=== PATIENT | female | born 1940 | race Caucasian/White ===

== ENCOUNTER 2017-07-12 07:57 | Day surgery (SDC) | payer OTHER ==
[2017-07-12] MEDS ORDERED: D5 LR 1000 ML 1,000 ML IV ONE (08:02)
[2017-07-12] MEDS ORDERED: DUONEB 0.5 MG/3 MG NEB ONE (08:49)
[2017-07-12] MEDS ORDERED: DUONEB 0.5 MG/3 MG ONE (08:51)
[2017-07-12] MEDS ORDERED: DIPRIVAN VIAL 20 ML ONE (09:39)
[2017-07-12 10:17] VITALS: BP 130/73
== END 2017-07-12 10:20 | disposition home or self-care (01) ==
LOC: SURG1 07:57
PROVIDERS: ATTEND Internal Medicine Gastroenterology
PROC: 0DB68ZX Excision of Stomach, Via Natural or Artificial Opening Endoscopic, Diagnostic (ICD-10-PCS; principal; 2017-07-12 11:15)
PROC: 0DB88ZX Excision of Small Intestine, Via Natural or Artificial Opening Endoscopic, Diagnostic (ICD-10-PCS; principal; 2017-07-12 11:15)
PROC: 0DJ08ZZ Inspection of Upper Intestinal Tract, Via Natural or Artificial Opening Endoscopic (ICD-10-PCS; principal; 2017-07-12 11:15)
DX: R13.19 Other dysphagia (principal); R10.13 Epigastric pain; K21.9 Gastro-esophageal reflux disease without esophagitis; K22.4 Dyskinesia of esophagus; R11.0 Nausea; K22.2 Esophageal obstruction; K44.9 Diaphragmatic hernia without obstruction or gangrene; K29.60 Other gastritis without bleeding
CPT/HCPCS: 94640; 99100; A4217; J3490; J7120; J7620

== ENCOUNTER 2017-07-19 08:12 | Day surgery (SDC) | payer OTHER ==
[2017-07-19] MEDS ORDERED: D5 LR 1000 ML 1,000 ML IV ONE (08:38)
[2017-07-19] MEDS ORDERED: DIPRIVAN VIAL 20 ML ONE (09:32)
[2017-07-19] MEDS ORDERED: DIPRIVAN VIAL 10 ML ONE (09:56)
[2017-07-19 11:13] VITALS: BP 132/88
== END 2017-07-19 10:25 | disposition home or self-care (01) ==
LOC: SURG1 08:12
PROVIDERS: ATTEND Internal Medicine Gastroenterology
PROC: 0DBN8ZX Excision of Sigmoid Colon, Via Natural or Artificial Opening Endoscopic, Diagnostic (ICD-10-PCS; principal; 2017-07-19 11:15)
PROC: 0DBM8ZX Excision of Descending Colon, Via Natural or Artificial Opening Endoscopic, Diagnostic (ICD-10-PCS; principal; 2017-07-19 11:15)
PROC: 0DBK8ZX Excision of Ascending Colon, Via Natural or Artificial Opening Endoscopic, Diagnostic (ICD-10-PCS; principal; 2017-07-19 11:15)
PROC: 0DJD8ZZ Inspection of Lower Intestinal Tract, Via Natural or Artificial Opening Endoscopic (ICD-10-PCS; principal; 2017-07-19 11:15)
PROC: 0DBP8ZX Excision of Rectum, Via Natural or Artificial Opening Endoscopic, Diagnostic (ICD-10-PCS; principal; 2017-07-19 11:15)
DX: K92.1 Melena (principal); K92.2 Gastrointestinal hemorrhage, unspecified; Z86.010 Personal history of colon polyps; K63.5 Polyp of colon; K57.30 Diverticulosis of large intestine without perforation or abscess without bleeding; K64.0 First degree hemorrhoids; D12.2 Benign neoplasm of ascending colon; D12.4 Benign neoplasm of descending colon
CPT/HCPCS: 99100; A4217; J3490; J7120

== ENCOUNTER → 2017-07-25 | Outpatient (CLI) | payer OTHER ==
[2017-07-19 11:13] VITALS: BP 132/88
[2017-07-25 09:56] LABS: BASOPHILS # (AUTO) 0.1 X10^3/uL (0.0-0.1); BASOPHILS % (AUTO) 0.7 % (0.2-1.0); HEMATOCRIT 38.6 % (36.0-47.0); HEMOGLOBIN 12.5 g/dL (12.0-16.0); LYMPHOCYTES # (AUTO) 0.8 X10^3/uL (1.3-2.9); LYMPHOCYTES % (AUTO) 10.4 % (21.0-51.0); MEAN CORPUSCULAR HEMOGLOBIN 27.7 pg (27.0-34.0); MEAN CORPUSCULAR HGB CONC 32.5 g/dL (33.0-35.0); MEAN PLATELET VOLUME 7.7 fL (7.4-11.0); MONOCYTES # (AUTO) 0.4 x10^3/uL (0.3-0.8); MONOCYTES % (AUTO) 4.9 % (0.0-13.0); NEUTROPHILS # (AUTO) 6.3 x10^3/uL (2.2-4.8); PLATELET COUNT 278 X10^3/uL (150.0-450.0); RED BLOOD COUNT 4.53 X10^6/uL (3.5-5.4); RED CELL DISTRIBUTION WIDTH 16.4 % (11.6-16.5); WHITE BLOOD COUNT 7.5 X10^3/uL (3.6-10.0)
[2017-07-25 10:01] LABS: ALANINE AMINOTRANSFERASE 18 Units/L (12-78); ALBUMIN 3.4 g/dL (3.4-5.0); ALKALINE PHOSPHATASE 113 Units/L (46-116); ASPARTATE AMINO TRANSFERASE 21 Units/L (15-37); BLOOD UREA NITROGEN 11 mg/dL (7-18); CALCIUM 9.2 mg/dL (8.5-10.1); CARBON DIOXIDE 29.7 mmol/L (21-32); CHLORIDE 102 mmol/L (98-107); CHOL/HDL RATIO 1.8 (0.0-5.0); CHOLESTEROL 176 mg/dL (0-200); CREATININE 1.24 mg/dL (0.55-1.02); FREE T4 (FREE THYROXINE) 0.97 ng/dL (0.76-1.46); HDL CHOLESTEROL 96 mg/dL (40-60); SODIUM 137 mmol/L (136-145); TOTAL PROTEIN 7.8 g/dL (6.4-8.2); TRIGLYCERIDES 50 mg/dL (0-150); TSH (3RD GENERATION) 1.146 uIU/mL (0.358-3.74); eGFR BLACK RACES 54 (>60); eGFR NON BLACK RACES 45 (>60)
== END ==
LOC: LAB 09:14
PROVIDERS: ATTEND Nurse Practitioner Family
DX: I10 Essential (primary) hypertension (principal); E78.4 Other hyperlipidemia; E03.8 Other specified hypothyroidism; E56.8 Deficiency of other vitamins
CPT/HCPCS: 36415; 80053; 80061; 82306; 84439; 84443; 84481; 85025

== ENCOUNTER → 2017-08-01 | Outpatient (CLI) | payer OTHER ==
[2017-07-19 11:13] VITALS: BP 132/88
--- NOTE | 2017-08-01 15:23 | RAD ---
Left knee, AP and lateral Indication: Knee pain Comparison: None Findings: There is mild tricompartmental degenerative arthrosis, worst in the medial compartment. The bones are subjectively osteopenic. No acute cortical disruption or malalignment identified. No large joint effusion. Impression: Mild tricompartmental DJD. Reported By:
--- NOTE | 2017-08-01 16:18 | RAD ---
History: Arthritis Study: Right knee Complete Findings: Multiple views of the right knee are compared to a previous study of 04/07/2016. There is s evere narrowing of the medial joint compartment with moderate spurring. There is minimal spurring fro m the superior and inferior poles of the patella. No fracture, bony destructive process or joint effu ventura is identified. There is osteopenia of the bony structures. 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 Reported By:
== END | disposition home or self-care (01) | DRG 554 ==
LOC: RAD 14:21
PROVIDERS: ATTEND Nurse Practitioner Family
DX: M17.0 Bilateral primary osteoarthritis of knee (principal)
CPT/HCPCS: 73564

== ENCOUNTER → 2017-08-08 | Outpatient (CLI) | payer OTHER ==
[2017-07-19 11:13] VITALS: BP 132/88
[2017-08-08 10:08] LABS: BASOPHILS # (AUTO) 0.1 X10^3/uL (0.0-0.1); BASOPHILS % (AUTO) 0.7 % (0.2-1.0); EOSINOPHILS # (AUTO) 0.1 x10^3/uL (0.0-0.2); EOSINOPHILS % (AUTO) 1.5 % (0.9-2.9); HEMATOCRIT 37.3 % (36.0-47.0); HEMOGLOBIN 12.1 g/dL (12.0-16.0); LYMPHOCYTES # (AUTO) 1.5 X10^3/uL (1.3-2.9); LYMPHOCYTES % (AUTO) 18.1 % (21.0-51.0); MEAN CORPUSCULAR HEMOGLOBIN 27.6 pg (27.0-34.0); MEAN CORPUSCULAR HGB CONC 32.4 g/dL (33.0-35.0); MEAN PLATELET VOLUME 7.3 fL (7.4-11.0); MONOCYTES # (AUTO) 0.7 x10^3/uL (0.3-0.8); MONOCYTES % (AUTO) 8.1 % (0.0-13.0); NEUTROPHILS % (AUTO) 71.6 % (42.0-75.0); PLATELET COUNT 248 X10^3/uL (150.0-450.0); RED BLOOD COUNT 4.39 X10^6/uL (3.5-5.4); RED CELL DISTRIBUTION WIDTH 16.5 % (11.6-16.5); WHITE BLOOD COUNT 8.4 X10^3/uL (3.6-10.0)
--- NOTE | 2017-08-08 10:12 | RAD ---
Examination: Lumbar spine History: Low back pain no trauma Findings: There is a severe rotoscoliosis of the lumbar spine, apex of curvature at L2. The the spina l deformity limits accurate lateral evaluation of alignment and intervertebral disc detail. There is suggestion of multilevel disc narrowing and osteophyte formation. There is no definite fracture. Oste openia is consistent with age. Impression: Severe lumbar scoliosis with rotatory component. Multilevel degenerative disc disease and spondylosis. No acute features demonstrated. Reported By:
--- NOTE | 2017-08-08 10:17 | RAD ---
Examination: Right hip, two views History: Pain, no trauma Comparison reference: 08/31/2016 Findings: Osteopenia consistent with age. There is no evidence for hip fracture, displacement, osteol ytic disease or periarticular calcification. The joint space is minimally narrowed. The femoral head is in normal position with the acetabulum. Impression: No acute or significant abnormality demonstrated. Reported By:
--- NOTE | 2017-08-08 10:21 | RAD ---
Examination: Right ribs History: Pain, no history of trauma Findings:The PA chest demonstrates normal heart size. The lungs are probably clear although partly ob scured by a very large intrathoracic hiatal hernia. There is no evidence for pleural fluid or pneumop eritoneum. Additional dedicated views of the right ribs demonstrate contour irregularity involving th e anterior rib ends at the 4th and 5th ribs. There is no evidence for osteoblastic disease or bone de struction. Evaluation of rib detail is limited by overlying structures. Impression: 1. Suspect acute or subacute right anterior rib fractures, see above. 2. Large intrathoracic hiatal hernia. Reported By:
[2017-08-08 10:23] LABS: ALANINE AMINOTRANSFERASE 14 Units/L (12-78); ALKALINE PHOSPHATASE 114 Units/L (46-116); ASPARTATE AMINO TRANSFERASE 13 Units/L (15-37); BLOOD UREA NITROGEN 17 mg/dL (7-18); CALCIUM 8.2 mg/dL (8.5-10.1); CHLORIDE 106 mmol/L (98-107); CHOL/HDL RATIO 1.7 (0.0-5.0); CHOLESTEROL 174 mg/dL (0-200); CREATININE 1.25 mg/dL (0.55-1.02); FREE T4 (FREE THYROXINE) 1.13 ng/dL (0.76-1.46); HDL CHOLESTEROL 100 mg/dL (40-60); SODIUM 142 mmol/L (136-145); TOTAL PROTEIN 6.8 g/dL (6.4-8.2); TRIGLYCERIDES 56 mg/dL (0-150); TSH (3RD GENERATION) 0.725 uIU/mL (0.358-3.74); eGFR BLACK RACES 54 (>60); eGFR NON BLACK RACES 44 (>60)
== END | disposition home or self-care (01) | DRG 556 ==
LOC: LAB 09:12
PROVIDERS: ATTEND Nurse Practitioner Family
DX: M25.551 Pain in right hip (principal); M25.261 Flail joint, right knee; R07.81 Pleurodynia; I10 Essential (primary) hypertension; E78.4 Other hyperlipidemia; E03.8 Other specified hypothyroidism; E56.8 Deficiency of other vitamins; K44.9 Diaphragmatic hernia without obstruction or gangrene; M51.36 Other intervertebral disc degeneration, lumbar region; M41.86 Other forms of scoliosis, lumbar region
CPT/HCPCS: 36415; 71111; 72110; 73501; 80053; 80061; 82306; 84439; 84443; 84481; 85025

== ENCOUNTER → 2017-08-13 | Outpatient (CLI) | payer OTHER ==
[2017-07-19 11:13] VITALS: BP 132/88
[2017-08-13 16:27] LABS: BASOPHILS % (AUTO) 0.2 % (0.2-1.0); EOSINOPHILS # (AUTO) 0.1 x10^3/uL (0.0-0.2); EOSINOPHILS % (AUTO) 1.6 % (0.9-2.9); HEMATOCRIT 39.3 % (36.0-47.0); HEMOGLOBIN 12.9 g/dL (12.0-16.0); LYMPHOCYTES % (AUTO) 26.5 % (21.0-51.0); MEAN CORPUSCULAR HEMOGLOBIN 27.9 pg (27.0-34.0); MEAN CORPUSCULAR HGB CONC 32.8 g/dL (33.0-35.0); MEAN CORPUSCULAR VOLUME 85.2 fL (80.0-100.0); MEAN PLATELET VOLUME 7.5 fL (7.4-11.0); MONOCYTES # (AUTO) 0.7 x10^3/uL (0.3-0.8); MONOCYTES % (AUTO) 8.9 % (0.0-13.0); NEUTROPHILS # (AUTO) 4.8 x10^3/uL (2.2-4.8); NEUTROPHILS % (AUTO) 62.8 % (42.0-75.0); PLATELET COUNT 223 X10^3/uL (150.0-450.0); RED BLOOD COUNT 4.61 X10^6/uL (3.5-5.4); RED CELL DISTRIBUTION WIDTH 16.7 % (11.6-16.5); WHITE BLOOD COUNT 7.6 X10^3/uL (3.6-10.0)
[2017-08-13 16:31] LABS: ALANINE AMINOTRANSFERASE 15 Units/L (12-78); ALBUMIN 3.3 g/dL (3.4-5.0); ALKALINE PHOSPHATASE 127 Units/L (46-116); ASPARTATE AMINO TRANSFERASE 15 Units/L (15-37); BLOOD UREA NITROGEN 13 mg/dL (7-18); CARBON DIOXIDE 29.9 mmol/L (21-32); CHLORIDE 102 mmol/L (98-107); COR CA(FOR HYPOALB) 9.6 mg/dL (8.5-10.1); CREATININE 1.11 mg/dL (0.55-1.02); SODIUM 139 mmol/L (136-145); TOTAL PROTEIN 7.4 g/dL (6.4-8.2); eGFR BLACK RACES > 60 (>60); eGFR NON BLACK RACES 51 (>60)
--- NOTE | 2017-08-13 16:45 | RAD ---
HISTORY: Wheezing. Study: PA and lateral chest: Two views Comparison: 08/08/2017, CT of the abdomen and pelvis 12/06/2016 Findings: There is a minimal atelectatic change in the left lung base. Otherwise, the lungs are clear. There is a very large midline hiatal hernia, however, it appears to contain colon as well. This has been prev iously seen on a CT scan of the abdomen and pelvis from 12/06/2016. Mild thoracic spondylosis is note d. IMPRESSION: 1. No radiographic evidence of acute cardiopulmonary disease. 2. Large hiatal hernia containing stomach and loops of colon. Reported By:
== END ==
LOC: LAB 15:54
PROVIDERS: ATTEND Nurse Practitioner Family
DX: R06.2 Wheezing (principal)
CPT/HCPCS: 36415; 71020; 80053; 85025

== ENCOUNTER 2017-10-22 18:51 | Emergency (ER) | payer OTHER, MEDICAID ==
[2017-10-22 19:02] VITALS: BMI 47.8
[2017-10-22] MEDS ORDERED: ADACEL TDaP IM ONE ×2 (19:14→19:24)
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
[2017-10-22] MEDS ORDERED: SILVADENE TOP NR (20:00)
[2017-10-22 20:48] VITALS: BP 127/78
== END 2017-10-22 20:41 | disposition home or self-care (01) ==
LOC: ER 19:04
PROC: 2W2NX4Z Dressing of Right Upper Leg using Bandage (ICD-10-PCS; principal; 2017-10-22)
DX: T24.219A Burn of second degree of unspecified thigh, initial encounter (principal); X12.XXXA Contact with other hot fluids, initial encounter; Y92.9 Unspecified place or not applicable
CPT/HCPCS: 16020; 90471; 99282

== ENCOUNTER 2017-12-01 12:02 | Inpatient (IN) | payer OTHER, MEDICAID ==
[2017-12-01] MEDS ORDERED: DUONEB 0.5 MG/3 MG ONE (12:11)
[2017-12-01] MEDS ORDERED: SOLU-Medrol 40 MG VIAL ONE (12:11)
[2017-12-01] MEDS ORDERED: SOLU-Medrol 40 MG VIAL IVP ONE (12:13)
[2017-12-01] MEDS ORDERED: DUONEB 0.5 MG/3 MG NEB ONE ×2 (12:13→16:45)
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
--- NOTE | 2017-12-01 12:35 | RAD ---
Examination: Right wrist, three views History: Fell Findings: There are acute, displaced and deforming fractures of distal radial and ulnar metaphysis. T he distal radial fragment is displaced markedly posteriorly together with the carpal complex. There i s less severe posterior displacement of the ulnar fragments, slightly comminuted. The carpal complex is intact. Impression: Markedly displaced and deforming fractures of distal right radius and ulna. Reported By:
[2017-12-01] MEDS ORDERED: REFLEX: PROVENTIL NEB & PulmiCORT NEB~ NEB SCH (13:45)
--- NOTE | 2017-12-01 13:55 | RAD ---
HISTORY: COPD exacerbation. Study: Portable chest. Comparison: Chest x-ray dated August 13, 2017. Findings: The trachea is midline. The cardiac silhouette is unremarkable. Large hiatal hernia appears unchange d given technique. No obvious focal consolidation, pleural effusion, or pneumothorax. The bony thora x is unremarkable. IMPRESSION: No acute cardiopulmonary disease. Reported By:
[2017-12-01] MEDS ORDERED: Atrovent NEB TX 0.02% NEB SCH (14:00)
[2017-12-01 14:10] LABS: BASOPHILS # (AUTO) 0.1 X10^3/uL (0.0-0.1); BASOPHILS % (AUTO) 0.7 % (0.2-1.0); EOSINOPHILS # (AUTO) 0.1 x10^3/uL (0.0-0.2); EOSINOPHILS % (AUTO) 0.8 % (0.9-2.9); HEMATOCRIT 37.1 % (36.0-47.0); HEMOGLOBIN 12.2 g/dL (12.0-16.0); LYMPHOCYTES # (AUTO) 1.1 X10^3/uL (1.3-2.9); LYMPHOCYTES % (AUTO) 13.1 % (21.0-51.0); MEAN CORPUSCULAR HEMOGLOBIN 28.4 pg (27.0-34.0); MEAN CORPUSCULAR HGB CONC 32.9 g/dL (33.0-35.0); MEAN CORPUSCULAR VOLUME 86.3 fL (80.0-100.0); MEAN PLATELET VOLUME 7.7 fL (7.4-11.0); MONOCYTES # (AUTO) 0.7 x10^3/uL (0.3-0.8); MONOCYTES % (AUTO) 7.8 % (0.0-13.0); NEUTROPHILS # (AUTO) 6.6 x10^3/uL (2.2-4.8); NEUTROPHILS % (AUTO) 77.6 % (42.0-75.0); PLATELET COUNT 226 X10^3/uL (150.0-450.0); RED CELL DISTRIBUTION WIDTH 15.8 % (11.6-16.5); WHITE BLOOD COUNT 8.5 X10^3/uL (3.6-10.0)
[2017-12-01 14:23] LABS: ALANINE AMINOTRANSFERASE 32 Units/L (12-78); ALBUMIN 3.4 g/dL (3.4-5.0); ALKALINE PHOSPHATASE 176 Units/L (46-116); ASPARTATE AMINO TRANSFERASE 92 Units/L (15-37); BLOOD UREA NITROGEN 14 mg/dL (7-18); CALCIUM 8.7 mg/dL (8.5-10.1); CHLORIDE 100 mmol/L (98-107); COR NA(FOR HYPERGLY) 136 mmol/L (136-145); SODIUM 136 mmol/L (136-145); TOTAL PROTEIN 7.4 g/dL (6.4-8.2); eGFR BLACK RACES 51 (>60); eGFR NON BLACK RACES 42 (>60)
[2017-12-01] MEDS: MORPHINE SULFATE INJ 2 MG INJ IVP PRN ×2 (15:30→20:59)
[2017-12-01] MEDS: NS 1000 ML 1,000 ML IV SCH (15:32)
[2017-12-01] MEDS: PEPCID 20 MG IV PREMIX* 20 MG/50 ML BAG IV SCH ×2 (15:33→20:59)
[2017-12-01] MEDS ORDERED: VERSED ONE (15:49)
[2017-12-01] MEDS ORDERED: DIPRIVAN VIAL 20 ML ONE (15:49)
[2017-12-01] MEDS ORDERED: KETALAR ONE (15:49)
--- NOTE | 2017-12-01 16:37 | RAD ---
Examination: Right wrist, three views History: Postreduction Comparison earlier same date Findings: Follow-up images were obtained through an anterior splint device. Radial and ulnar fracture s again noted. There is interval improvement in the position, alignment and deformity. However there is persistent displacement of distal ulnar and radial fragments amounting to about 1/3 to 1/2 shaft 's width posterior displacement. There is improvement in the original impaction. No new abnormality i s noted. Impression: Significant post reduction improvement in position, alignment and deformity with residual posterior displacement of the distal fragments as described. Reported By:
[2017-12-01] MEDS ORDERED: DUONEB 0.5 MG/3 MG NEB SCH (17:00)
[2017-12-01] MEDS: DUONEB 0.5 MG/3 MG NEB SCH ×2 (17:14→20:09)
[2017-12-01] MEDS: PULMICORT NEB TX 0.5 MG NEB SCH (20:10)
[2017-12-01] MEDS ORDERED: PULMICORT NEB TX 0.5 MG NEB SCH (21:00)
[2017-12-02] MEDS: MORPHINE SULFATE INJ 2 MG INJ IVP PRN ×5 (00:30→23:00)
[2017-12-02] MEDS: DUONEB 0.5 MG/3 MG NEB SCH ×6 (00:35→21:11)
[2017-12-02] MEDS: NS 1000 ML 1,000 ML IV SCH ×2 (04:30→18:23)
[2017-12-02] MEDS: ROBITUSSIN DM PO PRN ×2 (04:33→21:02)
[2017-12-02 06:46] LABS: BASOPHILS % (AUTO) 0.3 % (0.2-1.0); HEMATOCRIT 31.7 % (36.0-47.0); HEMOGLOBIN 10.5 g/dL (12.0-16.0); LYMPHOCYTES % (AUTO) 11.1 % (21.0-51.0); MEAN CORPUSCULAR HEMOGLOBIN 28.6 pg (27.0-34.0); MEAN CORPUSCULAR VOLUME 86.8 fL (80.0-100.0); MEAN PLATELET VOLUME 8.2 fL (7.4-11.0); MONOCYTES # (AUTO) 0.7 x10^3/uL (0.3-0.8); MONOCYTES % (AUTO) 8.2 % (0.0-13.0); NEUTROPHILS % (AUTO) 80.4 % (42.0-75.0); PLATELET COUNT 196 X10^3/uL (150.0-450.0); RED BLOOD COUNT 3.65 X10^6/uL (3.5-5.4); RED CELL DISTRIBUTION WIDTH 15.3 % (11.6-16.5); WHITE BLOOD COUNT 8.6 X10^3/uL (3.6-10.0)
[2017-12-02 07:03] LABS: ALANINE AMINOTRANSFERASE 52 Units/L (12-78); ALBUMIN 2.8 g/dL (3.4-5.0); ALKALINE PHOSPHATASE 162 Units/L (46-116); ASPARTATE AMINO TRANSFERASE 70 Units/L (15-37); BLOOD UREA NITROGEN 14 mg/dL (7-18); CALCIUM 8.5 mg/dL (8.5-10.1); CARBON DIOXIDE 24.8 mmol/L (21-32); CHLORIDE 103 mmol/L (98-107); COR CA(FOR HYPOALB) 9.5 mg/dL (8.5-10.1); CREATININE 1.07 mg/dL (0.55-1.02); SODIUM 137 mmol/L (136-145); TOTAL PROTEIN 6.3 g/dL (6.4-8.2); eGFR BLACK RACES > 60 (>60); eGFR NON BLACK RACES 53 (>60)
[2017-12-02] MEDS: PEPCID 20 MG IV PREMIX* 20 MG/50 ML BAG IV SCH ×2 (08:32→21:01)
[2017-12-02] MEDS: PULMICORT NEB TX 0.5 MG NEB SCH ×2 (08:50→21:11)
[2017-12-02] MEDS: SINGULAIR TAB 10 MG PO SCH (09:52)
[2017-12-02] MEDS: DETROL LA 2 MG CAP EXT REL PO SCH (09:52)
[2017-12-02] MEDS: CELEXA PO SCH (09:52)
[2017-12-02] MEDS: NORVASC TAB 5 MG PO SCH (09:53)
[2017-12-02] MEDS: SYNTHROID 100 mcg TAB PO SCH (09:53)
[2017-12-02] MEDS: NEURONTIN CAP 100 MG PO SCH ×2 (09:53→21:01)
[2017-12-02] MEDS: ATIVAN TAB 1 MG PO PRN (09:53)
[2017-12-02] MEDS: NORCO 10/325 TAB PO PRN ×2 (12:32→21:01)
[2017-12-02 21:01] LABS: BILIRUBIN,URINE NEGATIVE (NEGATIVE); BLOOD/HEMOGLOBIN,URINE NEGATIVE (NEGATIVE); GLUCOSE, URINE NEGATIVE (NEGATIVE); KETONES,URINE NEGATIVE (NEGATIVE); LEUKOCYTE ESTERASE ,URINE NEGATIVE (NEGATIVE); NITRITES,URINE NEGATIVE (NEGATIVE); PROTEIN,URINE NEGATIVE (NEGATIVE); UROBILINOGEN,URINE NORMAL (NORMAL)
[2017-12-02] MEDS: RESTORIL CAP 15 MG PO PRN (21:02)
[2017-12-02 21:10] LABS: APPEARANCE,URINE CLEAR (CLEAR); BACTERIA,URINE NEGATIVE /HPF (NEGATIVE); COLOR,URINE PALE YELLOW (YELLOW); RBC,URINE 0-3 /HPF (NONE SEEN); SQUAMOUS EPITHELIAL CELL,UR RARE /HPF (NEGATIVE)
[2017-12-03] MEDS: DUONEB 0.5 MG/3 MG NEB SCH ×6 (00:09→20:03)
[2017-12-03] MEDS: NS 1000 ML 1,000 ML IV SCH ×2 (04:00→17:46)
[2017-12-03 06:15] LABS: BASOPHILS # (AUTO) 0.1 X10^3/uL (0.0-0.1); BASOPHILS % (AUTO) 0.7 % (0.2-1.0); EOSINOPHILS % (AUTO) 0.5 % (0.9-2.9); HEMATOCRIT 30.2 % (36.0-47.0); LYMPHOCYTES # (AUTO) 1.7 X10^3/uL (1.3-2.9); LYMPHOCYTES % (AUTO) 22.7 % (21.0-51.0); MEAN CORPUSCULAR HEMOGLOBIN 28.6 pg (27.0-34.0); MEAN CORPUSCULAR HGB CONC 33.1 g/dL (33.0-35.0); MEAN CORPUSCULAR VOLUME 86.2 fL (80.0-100.0); MEAN PLATELET VOLUME 7.8 fL (7.4-11.0); MONOCYTES # (AUTO) 0.9 x10^3/uL (0.3-0.8); MONOCYTES % (AUTO) 12.3 % (0.0-13.0); NEUTROPHILS # (AUTO) 4.8 x10^3/uL (2.2-4.8); NEUTROPHILS % (AUTO) 63.8 % (42.0-75.0); PLATELET COUNT 194 X10^3/uL (150.0-450.0); RED BLOOD COUNT 3.51 X10^6/uL (3.5-5.4); RED CELL DISTRIBUTION WIDTH 15.7 % (11.6-16.5); WHITE BLOOD COUNT 7.6 X10^3/uL (3.6-10.0)
[2017-12-03 06:16] LABS: ALANINE AMINOTRANSFERASE 35 Units/L (12-78); ALBUMIN 2.8 g/dL (3.4-5.0); ALKALINE PHOSPHATASE 138 Units/L (46-116); ASPARTATE AMINO TRANSFERASE 29 Units/L (15-37); BLOOD UREA NITROGEN 10 mg/dL (7-18); CALCIUM 8.3 mg/dL (8.5-10.1); CARBON DIOXIDE 27.4 mmol/L (21-32); CHLORIDE 105 mmol/L (98-107); COR CA(FOR HYPOALB) 9.3 mg/dL (8.5-10.1); CREATININE 0.95 mg/dL (0.55-1.02); SODIUM 139 mmol/L (136-145); TOTAL PROTEIN 6.1 g/dL (6.4-8.2); eGFR BLACK RACES > 60 (>60); eGFR NON BLACK RACES > 60 (>60)
[2017-12-03 07:34] VITALS: BMI 37.1
[2017-12-03] MEDS: MORPHINE SULFATE INJ 2 MG INJ IVP PRN ×2 (07:42→14:45)
[2017-12-03] MEDS ORDERED: MARCAINE 0.25% INJ ONE (08:04)
[2017-12-03] MEDS: PULMICORT NEB TX 0.5 MG NEB SCH ×2 (08:18→20:03)
[2017-12-03] MEDS ORDERED: LR 1000 ML IV 1,000 ML IV ONE (08:27)
[2017-12-03] MEDS ORDERED: ANCEF 1 GM IV PREMIX* 1 GM/50 ML BAG IV ONE ×2 (08:28→08:44)
[2017-12-03] MEDS ORDERED: MARCAINE 0.5% ONE (08:37)
[2017-12-03] MEDS ORDERED: XYLOCAINE 2 % (PLAIN) ONE (08:37)
[2017-12-03] MEDS ORDERED: FENTANYL INJ 100 mcg ONE (08:58)
--- NOTE | 2017-12-03 09:53 | DR.CONSULT ---
Consult - Consultation for Day of: Date: 12/03/17 - Chief Complaint Chief Complaint: pt is a 77 F with rt wrist fracture. had a fall was seen in ER. closed reduction done. placed in splint. past history significant for COPD , HTN and hypothyroidism. past surgical c section and cholecystectomy - Allergies Allergies/Adverse Reactions: Allergies Allergy/AdvReac Type Severity Reaction Status Date / Time celecoxib [From Celebrex] Allergy Intermediate Verified 12/01/17 12:10 cyclobenzaprine Allergy Intermediate Verified 12/01/17 12:10 [From Flexeril] Sulfa (Sulfonamide Allergy Intermediate Verified 12/01/17 12:10 Antibiotics) [SULFA] - Past Medical History Past Medical History: COPD, Hypertension, Hypothyroidism Additional Medical History: Hx Diverticulitis/Diverticulosis, Cataracts, Hx GI Bleed, Fibromyalgia, Degenerative Disc Disease - Past Surgical History Surgical History: Appendectomy, , Cholecystectomy, Hysterectomy Additional Surgical History: Breast Bx, Cataract removal - Family History Family Medical History: Diabetes Mellitus, Hypertension - Social History Does patient currently use any type of tobacco product: Yes Have you used tobacco products in the last 12 months: Yes Type of Tobacco Use: Cigarettes How many years tobacco product used: 1 Does any household member use tobacco: No Alcohol Use: None Drug Use: None - Medications Home Medications: Albuterol Neb 2.5MG/ 3Ml [ALBUTEROL NEB 2.5MG/ 3ML *] 1 inh INH QID PRN [History Confirmed 12/01/17] Albuterol Sulfate [Proair Hfa] 2 inh INH PRN PRN 12/01/17 [History Confirmed ] Esomeprazole Magnesium [Esomeprazole Magnesium] 1 cap PO BID 12/01/17 [History Confirmed 12/01/17] Famotidine [Pepcid] 1 tab PO HS 12/01/17 [History Confirmed 12/01/17] Gabapentin [NEURONTIN CAP 100 MG *] 1 tab PO BID 12/01/17 [History Confirmed ] Hydrocodone-Acet 10/325 mg [NORCO 10 MG/325 MG *] 1 tab PO Q6H PRN 12/01/17 [ History Confirmed 12/01/17] Levothyroxine Sodium [Levothyroxine Sodium] 1 tab PO DAILY 12/01/17 [History Confirmed 12/01/17] Liothyronine Sodium [Cytomel] 5 mg PO DAILY 12/01/17 [History Confirmed 12/01/17 ] Lorazepam [Ativan] 1 mg PO TID PRN 12/01/17 [History Confirmed 12/01/17] Ondansetron HCl [Zofran] 4 mg PO Q4-6H PRN 12/01/17 [History Confirmed 12/01/17] Solifenacin Succinate [Vesicare] 1 tab PO DAILY 12/01/17 [History Confirmed ] Tiotropium [place] Monohydrate [SPIRIVA HANDIHALER (30 DOSE) *] 1 inh INH DAILY 12/01/17 [History Confirmed 12/01/17] Tramadol HCl [ULTRAM 50 MG *] 100 mg PO TID PRN 12/01/17 [History Confirmed ] - Physical Exam Vital Signs: Temperature 98.0 F Pulse Rate [Left Brachial] 84 Pulse Rate 84 Respiratory Rate 20 Blood Pressure [Right Calf] 156/85 Blood Pressure [Right Arm] 118/87 Blood Pressure [Left Arm] 153/77 Blood Pressure 143/90 O2 Sat by Pulse Oximetry 95 - Plan Plan: discussed tretment options with the family. martha daughter was talked to over the phone. she is a high risk for prolomged anesthesi GA per anesthesia. treatment options discussed with her daughter. failure to extubate/ prologed ventilaotor support/ due to resp failure was disucced with her family. she understnds and would like to proceed with surgery. CRPP vs EX fix vs ORIF plate and screw dsicussed. My suggestion was to proceed with EXfix with k wires due to cominution and also the reduced surgey duration compared to ORIF was suggested. They underrstood and verbalized the same.
[2017-12-03] MEDS ORDERED: NS IRRIGATION 1000 ML 1,000 ML with BACITRACIN VIAL 50,000 UNT IR ONE ×2 (10:05)
[2017-12-03] MEDS ORDERED: ZOFRAN INJ 4 MG VIAL IVP PRN ×2 (11:29→12:25)
[2017-12-03] MEDS ORDERED: PHENERGAN INJ 25 MG IVP PRN (11:29)
[2017-12-03] MEDS ORDERED: DILAUDID INJ IVP PRN (11:29)
[2017-12-03] MEDS ORDERED: BENADRYL INJ 50 MG VIAL IVP PRN (11:29)
[2017-12-03] MEDS ORDERED: REGLAN INJ 10 MG VIAL IVP PRN (11:29)
[2017-12-03] MEDS ORDERED: DILAUDID INJ ONE (11:45)
--- NOTE | 2017-12-03 12:03 | RAD ---
Right wrist-2 views Indication: Postoperative right wrist fracture repair Findings: 2 K-wires transfix the comminuted intra-articular distal radius fracture. Comminuted ulnar fracture shows minimal impaction. External fixation hardware is seen at the midshaft radius and at th e index long finger. There is fracture at the proximal screw of the index finger metacarpal. Impression: 1. Index finger metacarpal fracture the proximal metacarpal screw external fixation 2. Comminuted ulna and radius fracture with 2 K-wires through the radius Reported By:
[2017-12-03] MEDS: NEURONTIN CAP 100 MG PO SCH ×2 (12:55→20:17)
[2017-12-03] MEDS: CELEXA PO SCH (12:55)
[2017-12-03] MEDS: DETROL LA 2 MG CAP EXT REL PO SCH (12:55)
[2017-12-03] MEDS: NORVASC TAB 5 MG PO SCH (12:56)
[2017-12-03] MEDS: SINGULAIR TAB 10 MG PO SCH (12:59)
[2017-12-03] MEDS: PEPCID 20 MG IV PREMIX* 20 MG/50 ML BAG IV SCH ×2 (12:59→20:18)
[2017-12-03] MEDS: SYNTHROID 100 mcg TAB PO SCH (12:59)
[2017-12-03] MEDS ORDERED: NS 100 ML IV + SPIKE MINIBAG* 100 ML IV ONE (13:28)
[2017-12-03] MEDS ORDERED: ZOSYN VIAL 4.5 GM IV SCH (14:00)
[2017-12-03] MEDS ORDERED: DIPRIVAN VIAL ONE (15:25)
[2017-12-03] MEDS ORDERED: VERSED ONE (15:25)
[2017-12-03] MEDS ORDERED: ZOFRAN INJ 4 MG VIAL ONE (15:25)
[2017-12-03] MEDS ORDERED: SUPRANE IN ONE (15:25)
[2017-12-03] MEDS: PERCOCET TAB 5/325 MG PO PRN ×2 (17:19→21:47)
[2017-12-03] MEDS: ATIVAN TAB 1 MG PO PRN (20:00)
[2017-12-03] MEDS: ZOSYN VIAL 4.5 GM 4.5 GM in NS 100 ML IV + SPIKE MINIBAG* 100 ML IV SCH (21:46)
[2017-12-03] MEDS: RESTORIL CAP 15 MG PO PRN (21:52)
[2017-12-04] MEDS: DUONEB 0.5 MG/3 MG NEB SCH ×6 (01:32→20:18)
[2017-12-04] MEDS: MORPHINE SULFATE INJ 2 MG INJ IVP PRN (02:31)
[2017-12-04 06:24] LABS: BASOPHILS % (AUTO) 0.7 % (0.2-1.0); EOSINOPHILS # (AUTO) 0.1 x10^3/uL (0.0-0.2); EOSINOPHILS % (AUTO) 0.8 % (0.9-2.9); HEMATOCRIT 32.3 % (36.0-47.0); HEMOGLOBIN 10.6 g/dL (12.0-16.0); LYMPHOCYTES # (AUTO) 1.5 X10^3/uL (1.3-2.9); LYMPHOCYTES % (AUTO) 21.2 % (21.0-51.0); MEAN CORPUSCULAR HEMOGLOBIN 28.3 pg (27.0-34.0); MEAN CORPUSCULAR HGB CONC 32.6 g/dL (33.0-35.0); MEAN CORPUSCULAR VOLUME 86.8 fL (80.0-100.0); MEAN PLATELET VOLUME 7.8 fL (7.4-11.0); MONOCYTES # (AUTO) 0.9 x10^3/uL (0.3-0.8); MONOCYTES % (AUTO) 12.7 % (0.0-13.0); NEUTROPHILS # (AUTO) 4.5 x10^3/uL (2.2-4.8); NEUTROPHILS % (AUTO) 64.6 % (42.0-75.0); PLATELET COUNT 176 X10^3/uL (150.0-450.0); RED BLOOD COUNT 3.73 X10^6/uL (3.5-5.4); RED CELL DISTRIBUTION WIDTH 15.9 % (11.6-16.5); WHITE BLOOD COUNT 6.9 X10^3/uL (3.6-10.0)
[2017-12-04] MEDS: PERCOCET TAB 5/325 MG PO PRN ×4 (06:24→23:00)
[2017-12-04] MEDS: ZOSYN VIAL 4.5 GM 4.5 GM in NS 100 ML IV + SPIKE MINIBAG* 100 ML IV SCH ×3 (06:24→21:00)
[2017-12-04] MEDS: NS 1000 ML 1,000 ML IV SCH ×3 (06:24→23:16)
[2017-12-04 07:05] LABS: ALANINE AMINOTRANSFERASE 87 Units/L (12-78); ALBUMIN 2.7 g/dL (3.4-5.0); ALKALINE PHOSPHATASE 227 Units/L (46-116); ASPARTATE AMINO TRANSFERASE 111 Units/L (15-37); BLOOD UREA NITROGEN 8 mg/dL (7-18); CALCIUM 8.7 mg/dL (8.5-10.1); CARBON DIOXIDE 26.9 mmol/L (21-32); CHLORIDE 105 mmol/L (98-107); COR CA(FOR HYPOALB) 9.7 mg/dL (8.5-10.1); CREATININE 0.92 mg/dL (0.55-1.02); SODIUM 141 mmol/L (136-145); TOTAL PROTEIN 6.5 g/dL (6.4-8.2); eGFR BLACK RACES > 60 (>60); eGFR NON BLACK RACES > 60 (>60)
[2017-12-04] MEDS: SINGULAIR TAB 10 MG PO SCH (08:29)
[2017-12-04] MEDS: NEURONTIN CAP 100 MG PO SCH ×2 (08:29→21:17)
[2017-12-04] MEDS: CELEXA PO SCH (08:30)
[2017-12-04] MEDS: PEPCID 20 MG IV PREMIX* 20 MG/50 ML BAG IV SCH (08:30)
[2017-12-04] MEDS: DETROL LA 2 MG CAP EXT REL PO SCH (08:30)
[2017-12-04] MEDS: NORVASC TAB 5 MG PO SCH (08:31)
[2017-12-04] MEDS: PULMICORT NEB TX 0.5 MG NEB SCH ×2 (09:09→20:18)
[2017-12-04] MEDS: SYNTHROID 100 mcg TAB PO SCH (09:45)
[2017-12-04] MEDS ORDERED: ATIVAN TAB 1 MG PO PRN (12:55)
[2017-12-04] MEDS: NORCO 10/325 TAB PO PRN (13:17)
[2017-12-04] MEDS: ROBITUSSIN DM PO PRN (21:00)
[2017-12-04] MEDS: ATIVAN TAB 1 MG PO PRN (21:00)
[2017-12-04] MEDS ORDERED: NEURONTIN CAP 100 MG PO SCH (21:00)
[2017-12-04] MEDS: PEPCID TAB 20 MG PO SCH (21:00)
[2017-12-04] MEDS: COLACE CAP 100 MG PO SCH (21:16)
[2017-12-04] MEDS: NexIUM PO SCH (21:17)
[2017-12-04] MEDS: RESTORIL CAP 15 MG PO PRN (22:00)
[2017-12-04] MEDS: MILK OF MAGNESIA PO SCH ×2 (23:16)
[2017-12-05] MEDS: DUONEB 0.5 MG/3 MG NEB SCH ×6 (00:14→21:00)
[2017-12-05] MEDS: ZOSYN VIAL 4.5 GM 4.5 GM in NS 100 ML IV + SPIKE MINIBAG* 100 ML IV SCH ×3 (05:52→21:05)
[2017-12-05 06:44] LABS: BASOPHILS # (AUTO) 0.1 X10^3/uL (0.0-0.1); BASOPHILS % (AUTO) 0.9 % (0.2-1.0); EOSINOPHILS # (AUTO) 0.1 x10^3/uL (0.0-0.2); EOSINOPHILS % (AUTO) 1.6 % (0.9-2.9); HEMATOCRIT 29.8 % (36.0-47.0); LYMPHOCYTES # (AUTO) 1.5 X10^3/uL (1.3-2.9); LYMPHOCYTES % (AUTO) 24.4 % (21.0-51.0); MEAN CORPUSCULAR HGB CONC 33.5 g/dL (33.0-35.0); MEAN CORPUSCULAR VOLUME 86.6 fL (80.0-100.0); MEAN PLATELET VOLUME 7.7 fL (7.4-11.0); MONOCYTES # (AUTO) 0.8 x10^3/uL (0.3-0.8); MONOCYTES % (AUTO) 12.6 % (0.0-13.0); NEUTROPHILS # (AUTO) 3.6 x10^3/uL (2.2-4.8); NEUTROPHILS % (AUTO) 60.5 % (42.0-75.0); PLATELET COUNT 180 X10^3/uL (150.0-450.0); RED BLOOD COUNT 3.44 X10^6/uL (3.5-5.4); RED CELL DISTRIBUTION WIDTH 15.6 % (11.6-16.5)
[2017-12-05 07:07] LABS: ALANINE AMINOTRANSFERASE 51 Units/L (12-78); ALBUMIN 2.4 g/dL (3.4-5.0); ALKALINE PHOSPHATASE 160 Units/L (46-116); ASPARTATE AMINO TRANSFERASE 41 Units/L (15-37); BLOOD UREA NITROGEN 7 mg/dL (7-18); CALCIUM 8.1 mg/dL (8.5-10.1); CHLORIDE 108 mmol/L (98-107); COR CA(FOR HYPOALB) 9.4 mg/dL (8.5-10.1); CREATININE 0.89 mg/dL (0.55-1.02); SODIUM 142 mmol/L (136-145); TOTAL PROTEIN 5.8 g/dL (6.4-8.2); eGFR BLACK RACES > 60 (>60); eGFR NON BLACK RACES > 60 (>60)
[2017-12-05] MEDS: NORCO 10/325 TAB PO PRN (08:00)
[2017-12-05] MEDS: CELEXA PO SCH (08:45)
[2017-12-05] MEDS: DETROL LA 2 MG CAP EXT REL PO SCH (08:45)
[2017-12-05] MEDS: LIOTHYRONINE SODIUM PO SCH (08:46)
[2017-12-05] MEDS: NEURONTIN CAP 100 MG PO SCH ×2 (08:46→21:04)
[2017-12-05] MEDS: NexIUM PO SCH ×2 (08:46→21:04)
[2017-12-05] MEDS: NORVASC TAB 5 MG PO SCH (08:47)
[2017-12-05] MEDS: SINGULAIR TAB 10 MG PO SCH (08:47)
[2017-12-05] MEDS: NS 1000 ML 1,000 ML IV SCH (08:47)
[2017-12-05] MEDS: SYNTHROID 100 mcg TAB PO SCH (08:47)
[2017-12-05] MEDS ORDERED: PATIENT'S HOME MEDICATION (Amlodipine Besylate [Amlodipine Besylate] 5 MG) PO SCH (09:00)
[2017-12-05] MEDS ORDERED: CELEXA PO SCH (09:00)
[2017-12-05] MEDS ORDERED: PATIENT'S HOME MEDICATION (Tiotropium Bromide Monohydrate 1 INH) INH SCH (09:00)
[2017-12-05] MEDS ORDERED: MONTELUKAST SODIUM 10 MG PO SCH (09:00)
[2017-12-05] MEDS ORDERED: SYNTHROID 100 mcg TAB PO SCH (09:00)
[2017-12-05] MEDS ORDERED: LASIX IVP ONE (09:14)
[2017-12-05] MEDS: PULMICORT NEB TX 0.5 MG NEB SCH ×2 (09:16→21:00)
--- NOTE | 2017-12-05 10:08 | RAD ---
HISTORY: COPD Study: Chest AP portable Comparison: 12/01/2017 Findings: The heart is enlarged. No congestive heart failure is noted. No definite acute alveolar infiltrates o r pleural effusions are identified. A very large diaphragmatic hiatal hernia is again identified and not significantly changed. The bony thorax is unremarkable. IMPRESSION: Mild cardiomegaly without congestive heart failure No infiltrates Huge diaphragmatic hiatal hernia, stable Reported By:
[2017-12-05] MEDS: MORPHINE SULFATE INJ 2 MG INJ IVP PRN ×2 (11:28→15:39)
[2017-12-05 13:56] LABS: BILIRUBIN,URINE NEGATIVE (NEGATIVE); BLOOD/HEMOGLOBIN,URINE 3+ (NEGATIVE); GLUCOSE, URINE NEGATIVE (NEGATIVE); KETONES,URINE NEGATIVE (NEGATIVE); LEUKOCYTE ESTERASE ,URINE NEGATIVE (NEGATIVE); NITRITES,URINE NEGATIVE (NEGATIVE); PROTEIN,URINE NEGATIVE (NEGATIVE); UROBILINOGEN,URINE NORMAL (NORMAL)
[2017-12-05 14:05] LABS: APPEARANCE,URINE CLEAR (CLEAR); BACTERIA,URINE NEGATIVE /HPF (NEGATIVE); COLOR,URINE YELLOW (YELLOW); RBC,URINE 0-2 /HPF (NONE SEEN); SQUAMOUS EPITHELIAL CELL,UR NEGATIVE /HPF (NEGATIVE)
[2017-12-05] MEDS: PEPCID TAB 20 MG PO SCH (21:04)
[2017-12-05] MEDS: COLACE CAP 100 MG PO SCH (21:04)
[2017-12-05] MEDS: MILK OF MAGNESIA PO SCH (21:04)
[2017-12-05] MEDS: PERCOCET TAB 5/325 MG PO PRN (21:06)
[2017-12-05] MEDS: RESTORIL CAP 15 MG PO PRN (21:07)
[2017-12-06] MEDS: DUONEB 0.5 MG/3 MG NEB SCH ×5 (00:47→12:13)
[2017-12-06] MEDS: NS 1000 ML 1,000 ML IV SCH ×2 (01:17→12:27)
[2017-12-06] MEDS ORDERED: DUONEB 0.5 MG/3 MG ONE (03:43)
[2017-12-06] MEDS: ZOSYN VIAL 4.5 GM 4.5 GM in NS 100 ML IV + SPIKE MINIBAG* 100 ML IV SCH (05:55)
[2017-12-06] MEDS: PERCOCET TAB 5/325 MG PO PRN ×2 (05:57→08:23)
[2017-12-06 06:43] LABS: BASOPHILS % (AUTO) 0.8 % (0.2-1.0); EOSINOPHILS # (AUTO) 0.1 x10^3/uL (0.0-0.2); EOSINOPHILS % (AUTO) 1.9 % (0.9-2.9); HEMATOCRIT 30.8 % (36.0-47.0); HEMOGLOBIN 10.1 g/dL (12.0-16.0); LYMPHOCYTES # (AUTO) 1.2 X10^3/uL (1.3-2.9); LYMPHOCYTES % (AUTO) 24.2 % (21.0-51.0); MEAN CORPUSCULAR HEMOGLOBIN 28.3 pg (27.0-34.0); MEAN CORPUSCULAR HGB CONC 32.8 g/dL (33.0-35.0); MEAN CORPUSCULAR VOLUME 86.2 fL (80.0-100.0); MONOCYTES # (AUTO) 0.6 x10^3/uL (0.3-0.8); MONOCYTES % (AUTO) 12.7 % (0.0-13.0); NEUTROPHILS % (AUTO) 60.4 % (42.0-75.0); PLATELET COUNT 203 X10^3/uL (150.0-450.0); RED BLOOD COUNT 3.57 X10^6/uL (3.5-5.4); RED CELL DISTRIBUTION WIDTH 16.1 % (11.6-16.5); WHITE BLOOD COUNT 4.9 X10^3/uL (3.6-10.0)
[2017-12-06 06:50] LABS: ALANINE AMINOTRANSFERASE 88 Units/L (12-78); ALBUMIN 2.4 g/dL (3.4-5.0); ALKALINE PHOSPHATASE 207 Units/L (46-116); ASPARTATE AMINO TRANSFERASE 180 Units/L (15-37); BLOOD UREA NITROGEN 7 mg/dL (7-18); CALCIUM 8.5 mg/dL (8.5-10.1); CARBON DIOXIDE 31.5 mmol/L (21-32); CHLORIDE 104 mmol/L (98-107); COR CA(FOR HYPOALB) 9.8 mg/dL (8.5-10.1); CREATININE 0.88 mg/dL (0.55-1.02); SODIUM 141 mmol/L (136-145); TOTAL PROTEIN 5.9 g/dL (6.4-8.2); eGFR BLACK RACES > 60 (>60); eGFR NON BLACK RACES > 60 (>60)
[2017-12-06] MEDS: CELEXA PO SCH (08:23)
[2017-12-06] MEDS: SINGULAIR TAB 10 MG PO SCH (08:23)
[2017-12-06] MEDS: NORVASC TAB 5 MG PO SCH (08:24)
[2017-12-06] MEDS: DETROL LA 2 MG CAP EXT REL PO SCH (08:24)
[2017-12-06] MEDS: SYNTHROID 100 mcg TAB PO SCH (08:24)
[2017-12-06] MEDS: NEURONTIN CAP 100 MG PO SCH (08:24)
[2017-12-06] MEDS ORDERED: BUTT CREAM (COMPOUND) ONE (09:16)
[2017-12-06] MEDS: PULMICORT NEB TX 0.5 MG NEB SCH (09:19)
[2017-12-06] MEDS: NexIUM PO SCH (09:40)
[2017-12-06 12:12] VITALS: BP 147/70
[2017-12-06] MEDS: LIOTHYRONINE SODIUM PO SCH (12:27)
--- NOTE | 2017-12-11 17:09 | OR.GENERIC ---
Post-Op Note Generic - Post-Op Note Operative Report: PREOPERATIVE DIAGNOSIS- right WRIST DISTAL END RADIUS FRACTURE, CLOSED, INTRA- ARTICULAR, COMMINUTED, UNSTABLE, OSTEOPOROTIC POSTOPERATIVE DIAGNOSIS-right WRIST DISTAL END RADIUS FRACTURE, CLOSED, INTRA- ARTICULAR, COMMINUTED, UNSTABLE, OSTEOPOROTIC PROCEDURE- right WRIST CLOSED REDUCTION AND EXTERNAL FIXATION APPLICATION AND k WIRE FIXATION DATE OF SURGERY -12/03/2017 IMPLANTS USED- HOOD DOMINGUEZ external fixator INDICATION- Mrs. SLIME GILLILAND is a 77-year-old female who presented to the Emergency Room with the fall and fractured her RIGHT wrist. She states by herself and was brought to the hospital by EMS. Examination and x-rays confirmed a unstable distal radius fracture. Initial reduction under IV sedation was done by the emergency room physician and it showed satisfactory reduction. Her past history is significant for chronic obstructive pulmonary disease, congestive heart failure and dementia. She was admitted under medical and a consult was placed for me. History was again reviewed and the examination was completed. X-ray showed a very unstable comminuted osteoporotic intra-articular fracture. Natural history and treatment discussions were done with her. The same was also done with her daughter. 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 She was placed for surgery. Open reduction interim fixation with plating versus closed reduction with external fixator with or without K wires were discussed with her. Anesthesia consult was also placed. They had significant concerns regarding her chronic obstructive pulmonary disease and where not comfortable doing a prolonged procedure of plating under general anesthesia. It was discussed with the daughter over the phone that there is significant risk involved with respiratory arrest and have need for prolonged intubation if she gets his surgery which lasts few hours for fixing her distal and radius. We advised that she could transfer the patient to a higher center. She insisted that he would want to get the surgery done locally. Upon further discussing with the stock worker and deliverer and the family we all agreed upon the plan of proceeding with a shorter procedure like close reduction and external fixation application. The patient, the daughter both of them consented for the surgery. The disk and benefits involved were discussed with them. Complications including but not limited to infection, nonunion, malunion, noticed arthritis, persistence of pain, stiffness and weakness of the wrist, pin tract infection, pin tract fractures, loss of reduction ,Radial sensory nerve injury, Risk of metacarpal fracture,Risk of loss of radial length,Risk of injury to extensor tendon,Stiffness, especially with over distraction,Risk of complex regional pain syndrome (type I) (CRPS-I),Risk of pin-track infection, Risk of redisplacement after removal,Unable to accurately control fragments without supplementary pinning were few of the complications which were discussed with them. They understood and verbalized same. They consented to proceed with the surgery. PREOPERATIVE- patient was met in the preoperative holding area. She was also met with the stock worker and deliverer. Consent was again revisited. Limb was marked. Patient noted the proper antibiotic. PROCEDURE- The patient was brought to the operating room. She was placed supine on the operating table and the RIGHT forearm was placed on a hand table. General anesthesia was induced and successful endotracheal intubation was completed. A nonsterile pneumatic tourniquet was applied. RIGHT limb was prepped and draped. C-arm was brought in and closed reduction was attempted with traction countertraction and direct manipulation. The alignment was satisfactory but the reduction was lost the moment traction countertraction was discontinued. as the reduction was maintained with counter traction and traction we decided to proceed with external fixator application. The RIGHT limb was prepped and draped. tourniquet was inflated after exsanguination of the upper limb with an Esmarch. an incision of about 2 cm was placed over the 2nd metacarpal. Blunt dissections was carried down to the 2nd metacarpal. The appropriate pin site was chosen and 2 parallel SHANTZ pins were placed in the 2nd metacarpal using a targeting guide sleeve. an incision ooff about 4 cm was placed for the placement of pins on the radial shaft. The bellies of APL and EPB were identified and pin sites were chosen proximal to them. using the parallel targeting guide sleeve 2 pins were placed in the radial shaft perpendicular to the transverse section. the pins were connected to the external fixator rods through the clamps. Reduction was achieved with longitudinal traction and countertraction. Volar tilt was restored with direct manipulation. There was intra-articular fracture and additional K wires were placed percutaneously. After confirmation of satisfactory reduction the clamps were tightened. C-arm images were obtained regularly at multiple stages throughout the procedures. we did notice a fracture of the 2nd metacarpal and proximal pin insertion. With her having anesthesia issues and a satisfactory reduction we decided to proceed with maintaining the external fixator. Taking the pins out risks the loss of reduction and also adding anesthesia time for placement of pins in the 3rd metacarpal. Her metacarpals were very osteoporotic and there was also additional risk of fracture of multiple other metacarpals. After discussion with the stock worker and deliverer it was decided that additional time to the procedure will add to increased risk of respiratory arrest and prolonged intubation would be needed for changing the pins and doing the whole procedure again. The wound was closed in layers with 2-0 Vicryl and 3 -0 Ethilon. Tourniquet was deflated and thorough hemostasis maintained. As sterile compression dressing was applied.aan pin tracts covered with BACITRACIN and Xeroform. Splint was applied. rECOVERY- patient was woken up from the surgery. She was extubated successfully. She was shifted to the PACU in a stable condition. Her saturation was being maintained with oxygen. Postoperative x-rays were obtained which showed an extra fixator in place and a satisfactory reduction and maintenance of the joint with K wires. Also seen was an 2nd metacarpal fracture through the proximal pin placed. These findings were discussed with the family. They understood and verbalized the same. The prognosis regarding this at a 2nd metacarpal fracture was discussed with them. They understood and verbalized to same. We will have her admitted for pain control as well as medical management.
== END 2017-12-06 13:42 | DRG 511 ==
LOC: ER 12:06 → ICU 13:20 → OBSVTOIN 12-02 09:00
PROVIDERS: ADMIT Internal Medicine; ATTEND Internal Medicine
PROC: 0PSHXZZ Reposition Right Radius, External Approach (ICD-10-PCS; principal; 2017-12-01)
PROC: 0PSKXZZ Reposition Right Ulna, External Approach (ICD-10-PCS; 2017-12-01)
PROC: 0PSH04Z Reposition Right Radius with Internal Fixation Device, Open Approach (ICD-10-PCS; 2017-12-03)
PROC: 0PSK04Z Reposition Right Ulna with Internal Fixation Device, Open Approach (ICD-10-PCS; 2017-12-03)
DX: S52.691A Other fracture of lower end of right ulna, initial encounter for closed fracture (principal); S52.591A Other fractures of lower end of right radius, initial encounter for closed fracture; J44.1 Chronic obstructive pulmonary disease with (acute) exacerbation; W18.39XA Other fall on same level, initial encounter; Y92.098 Other place in other non-institutional residence as the place of occurrence of the external cause; J20.8 Acute bronchitis due to other specified organisms; B95.62 Methicillin resistant Staphylococcus aureus infection as the cause of diseases classified elsewhere; R26.89 Other abnormalities of gait and mobility
CPT/HCPCS: 25600; 36415; 64415; 71045; 73100; 76000; 80053; 81001; 85025; 85610; 85730; 86850; 86900; 86901; 87070; 87077; 87186; 87205; 93005; 93010; 94640; 96365; 96367; 96374; 96375; 97535; 99100; 99218; 99284; 99285; A4216; A4222; S0020; S0028; G0378; J0690; J1170; J1940; J2001; J2250; J2270; J2405; J2543; J2920; J3010; J3490; J7120; J7620; J7626

== ENCOUNTER 2017-12-08 10:39 | Emergency (ER) | payer OTHER, MEDICAID ==
[2017-12-08 11:12] VITALS: BMI 36.7
[2017-12-08] MEDS ORDERED: DUONEB 0.5 MG/3 MG NEB ONE (11:23)
[2017-12-08] MEDS ORDERED: SOLU-Medrol 125 MG VIAL IVP ONE (11:23)
[2017-12-08] MEDS ORDERED: VANCOMYCIN HCL 1 GM VIAL 1 GM in D5W 250 ML IV 250 ML IV ONE (11:26)
[2017-12-08] MEDS ORDERED: DUONEB 0.5 MG/3 MG ONE (11:32)
--- NOTE | 2017-12-08 11:32 | DR.GENAD ---
HPI - PCP Primary Care Physician: [facility] - Complaint/Symptoms Chief Complaint Doctors Comments: Patient states she fell about a week ago with external fixation right wrist fracture. Patient states her hand was hurting and she tried to remove the hardware to get it to stop hurting. Rehab nurse states patient has been using knife and scissor trying to remove the hardware. patient states she has been pulling on it with her hand and it helped for a little while. she is complaining of SOB, wheezing and xiphoid chest pain. She denies fever, chills, cold or cough. She is to be evaluated by Dr. Mena for hardware evaluation and possible removal. Patient is already of Keflex. Chief Complaint:: NURSE FROM [facility] STATES PT HAS BEEN MANIPULATING HER EXTERNAL HARDWARE FROM A FIXATION OF A RADIAL FRACTURE. NOTED GOOD RADIAL PULSE. NOTED REDNESS AND EDEMA TO RT FA. PT'S NURSE STATES PT WILL NOT KEEP A DRESSING OVER WOUND AND PT HAS BEEN TRYING TO CUT HARDWARE WITH KNIVES AND SCISSORS. - Nurses notes reviewed Nurses Notes Review: Yes - Source History Provided: Patient, EMS, Care Home - Mode of Arrival Mode of Arrival: EMS - Timing Onset of Chief Complaint: 12/08/17 Came on: Gradually - Duration Duration: Constant How lon Duration: Weeks - Location Location: right arm and hand - Severity Severity: Moderate - Modifying Factors Worsens:: nothing Improves:: nothing PMH - PMH Past Medical History: Yes Past Medical History: COPD, Hypertension, Hypothyroidism Past Surgical History: Yes Surgical History: Appendectomy, , Cholecystectomy, Hysterectomy - Family History History of Family Medical Conditions: Yes Family Medical History: Diabetes Mellitus, Hypertension - Social History Does any household member use tobacco: No Alcohol Use: None Do you use any recreational Drugs:: No Lives With: Other Lives Where: Care Home - infectious screening In the last 2 months have you had wt loss of >10#?: NO Have you had fever, night sweats or hemotysis?: No Have you traveled outside the country in the last 6 months?: No Isolation: Standard ROS - Review of Systems Constitutional: No Symptoms Reported. negative: See HPI, Chills, Diaphoresis, Fever, Malaise, Weakness, Irritable, Fatigue, Loss of Appetite, Other Eyes: No Symptoms Reported ENTM: No Symptoms Reported Respiratoy: No Symptoms Reported, Short of Breath, Wheezing Cardiovascular: No Symptoms Reported, Chest Pain. negative: See HPI, Edema, Palpitations, Syncope, Cyanosis, Skin Mottling, Other Gastrointestinal/Abdominal: No Symptoms Reported. negative: See HPI, Abdominal Pain, Constipation, Diarrhea, Nausea, Vomiting, Food Intolerance, Other Genitourinary: No Symptoms Reported Neurological: No Symptoms Reported Musculoskeletal: No Symptoms Reported, Right, Arm, Wrist (swelling with external hardware) Integumentary: Wound (right arm and wrist with external fixation; erythema; swelling; no discharge) Hematologic/Lymphatic: No Symptoms Reported. negative: See HPI, Anemia, Blood Clots, Easy Bleeding, Easy Bruising, Swollen Glands, Lymphadenopathy, Other Endocrine: No Symptoms Reported Psychiatric: No Symptoms Reported PE - Vital Signs Vitals: Temperature 98.5 F Pulse Rate [Apical] 74 Pulse Rate [Left Radial] 76 Pulse Rate 78 Respiratory Rate 14 Blood Pressure [Right Calf] 147/70 Blood Pressure [Right Arm] 128/91 Blood Pressure [Left Arm] 123/83 Blood Pressure 136/86 O2 Sat by Pulse Oximetry 97 - General Limitations: No Limitations General Appearance: Alert, In No Apparent Distress - Head Head Exam: Normal Inspection, Atraumatic, Normocephalic - Eyes Eye exam: Normal Appearance, PERRL, EOMI. negative: Scleral Icterus, Conjunctival Injection, Nystagmus, Miosis, Mydrasis, Periorbital Swelling, Periorbital Tenderness, Other - ENT ENT Exam: Normal Exam, Normal Oropharynx, Normal External Ear Exam, Mucous Membranes Moist, TM's Normal Bilaterally External Ear Exam: Normal External Inspection TM/Canal Exam: Bilateral Normal Nose Exam: Normal Nose Exam Mouth Exam: Normal Inspection Throat Exam: Normal Inspection - Neck Neck Exam: Normal Inspection, Full ROM, Trachea Midline - Chest Chest Inspection: Normal Inspection, Symmetric Chest Wall Rise - Respiratory Respiratory Exam: Prolonged Expiratory Phase Respiratory Exam: Bilateral Wheezing, Bilateral Rhonchi - Cardiovascular Cardiovascular Exam: Regular Rate, Normal Rhythm, Normal Heart Sounds, Systolic Murmur - Abdominal Exam Abdominal Exam: Normal Inspection, Normal Bowel Sounds, Soft Abdominal Tenderness: negative: RUQ, RLQ, LUQ, LLQ, Epigastrium, Suprapubic, Diffuse, Mild, Moderate, Severe, Other - Extremities Extremities Exam: Normal Inspection, Normal Capillary Refill, Edema (right hand with swelling; external hardware noted with slight erythema; no discharge) - Back Back Exam: Normal Inspection, Full ROM. negative: Tenderness, (R) CVA Tenderness, (L) CVA Tenderness, Muscle Spasm, Paraspinal Tenderness, Vertebral Tenderness, Rashes, (R) Sciatic Notch Tenderness, (L) Sciatic Notch Tendern, (R ) Straight Leg Raise, (L) Straight Leg Raise, Other - Neurologic Neurological Exam: Alert, Oriented X3, CN II-XII Intact, Reflexes Normal. negative: Normal Gait (gait not tested) - Psychiatric Psychiatric Exam: Normal Affect, Normal Mood - Skin Skin Exam: Warm, Dry, Intact, Erythema (right hand and arm with erythema; swelling, edematous) ROR - Labs Reviewed Laboratory Results Reviewed?: Yes (all labs and x-ray results reviewed and discussed with patient) Result Diagrams: 12/08/17 11:36 12/08/17 11:36 Laboratory: WBC 6.3 X10^3/uL (3.6-10.0) 12/08/17 11:36 RBC 3.77 X10^6/uL (3.5-5.4) 12/08/17 11:36 Hgb 10.7 g/dL (12.0-16.0) L 12/08/17 11:36 Hct 32.4 % (36.0-47.0) L 12/08/17 11:36 MCV 86.1 fL (80.0-100.0) 12/08/17 11:36 MCH 28.3 pg (27.0-34.0) 12/08/17 11:36 MCHC 32.9 g/dL (33.0-35.0) L 12/08/17 11:36 RDW 15.9 % (11.6-16.5) 12/08/17 11:36 Plt Count 231 X10^3/uL (150.0-450.0) 12/08/17 11:36 MPV 7.5 fL (7.4-11.0) 12/08/17 11:36 Neut % 70.3 % (42.0-75.0) 12/08/17 11:36 Lymph % 15.5 % (21.0-51.0) L 12/08/17 11:36 Mathews % 11.2 % (0.0-13.0) 12/08/17 11:36 Eos % 2.2 % (0.9-2.9) 12/08/17 11:36 Baso % 0.8 % (0.2-1.0) 12/08/17 11:36 Neut # 4.5 x10^3/uL (2.2-4.8) 12/08/17 11:36 Lymph # 1.0 X10^3/uL (1.3-2.9) L 12/08/17 11:36 Mathews # 0.7 x10^3/uL (0.3-0.8) 12/08/17 11:36 Eos # 0.1 x10^3/uL (0.0-0.2) 12/08/17 11:36 Baso # 0.1 X10^3/uL (0.0-0.1) 12/08/17 11:36 Absolute Nucleated RBC 0.0 /100WBC 12/08/17 11:36 INR Target Range - 12/08/17 11:36 INR 0.97 (0.8-1.3) 12/08/17 11:36 PTT 29.1 SECONDS (22.9-36.5) 12/08/17 11:36 PTT Comment - 12/08/17 11:36 Sodium 138 mmol/L (136-145) 12/08/17 11:36 Corrected Sodium TNP 12/08/17 11:36 Potassium 3.8 mmol/L (3.5-5.1) 12/08/17 11:36 Chloride 100 mmol/L (98-107) 12/08/17 11:36 Carbon Dioxide 31.5 mmol/L (21-32) 12/08/17 11:36 BUN 15 mg/dL (7-18) 12/08/17 11:36 Creatinine 1.27 mg/dL (0.55-1.02) H 12/08/17 11:36 Est GFR (MDRD) Af Amer 53 (>60) L 12/08/17 11:36 Est GFR (MDRD) Non-Af 43 (>60) L 12/08/17 11:36 Glucose 93 mg/dL (65-99) 12/08/17 11:36 Lactic Acid Cancelled 12/08/17 11:36 Calcium 8.4 mg/dL (8.5-10.1) L 12/08/17 11:36 Corrected Calcium 9.3 mg/dL (8.5-10.1) 12/08/17 11:36 Magnesium 1.9 mg/dL (1.7-2.9) 12/08/17 11:36 Total Bilirubin 0.50 mg/dL (0.2-1.0) 12/08/17 11:36 AST 93 Units/L (15-37) H 12/08/17 11:36 ALT 68 Units/L (12-78) 12/08/17 11:36 Alkaline Phosphatase 251 Units/L (46-116) H 12/08/17 11:36 Creatine Kinase 90 Units/L (26-192) 12/08/17 11:36 CK-MB (CK-2) 1.9 ng/mL (0-4.0) 12/08/17 11:36 CK/CKMB % Calc 2.1 % (<4) 12/08/17 11:36 Troponin I < 0.02 ng/mL (0-1.5) 12/08/17 11:36 Total Protein 6.6 g/dL (6.4-8.2) 12/08/17 11:36 Albumin 2.9 g/dL (3.4-5.0) L 12/08/17 11:36 Globulin 3.7 g/dL (2.5-4.5) 12/08/17 11:36 Albumin/Globulin Ratio 0.8 Ratio (1.1-2.1) L 12/08/17 11:36 - XRAY XRAY Interpreted by: Radiologist (Right hand: Subacute fracture within the mid diaphysis of the 2nd metacarpal. Chronic appearing deformity of distal radius and ulna with postsurgical hardware in place and stable.) XRAY Findings: CXR: No acute cardiopulmonary disease - Diagnosis Discharge Problem: cellulitis right hand and arm, Distal radius fracture, right, Fracture, ulna, Subacute fracture 2nd metacarpal, COPD (chronic obstructive pulmonary disease) - Discharge Plan Disposition: 01 HOME, SELF-CARE Condition: Stable - Follow ups/Referrals Follow ups/Referrals: VERONICA EM [Primary Care Provider] - 3 days RADHA MENA [STAFF PHYSICIAN] - 3 days - Instructions Instructions: Radial Fracture, Cellulitis, Adult, [id number], Ulnar Fracture
[2017-12-08] MEDS ORDERED: NS 100 ML IV 100 ML IV ONE (11:43)
[2017-12-08] MEDS ORDERED: SOLU-Medrol 125 MG VIAL ONE (11:43)
[2017-12-08] MEDS ORDERED: VANCOMYCIN 1 GM PREMIX (ADDVANTAGE) 250 ML IV ONE (11:43)
[2017-12-08 11:55] LABS: BASOPHILS # (AUTO) 0.1 X10^3/uL (0.0-0.1); BASOPHILS % (AUTO) 0.8 % (0.2-1.0); EOSINOPHILS # (AUTO) 0.1 x10^3/uL (0.0-0.2); EOSINOPHILS % (AUTO) 2.2 % (0.9-2.9); HEMATOCRIT 32.4 % (36.0-47.0); HEMOGLOBIN 10.7 g/dL (12.0-16.0); LYMPHOCYTES % (AUTO) 15.5 % (21.0-51.0); MEAN CORPUSCULAR HEMOGLOBIN 28.3 pg (27.0-34.0); MEAN CORPUSCULAR HGB CONC 32.9 g/dL (33.0-35.0); MEAN CORPUSCULAR VOLUME 86.1 fL (80.0-100.0); MEAN PLATELET VOLUME 7.5 fL (7.4-11.0); MONOCYTES # (AUTO) 0.7 x10^3/uL (0.3-0.8); MONOCYTES % (AUTO) 11.2 % (0.0-13.0); NEUTROPHILS # (AUTO) 4.5 x10^3/uL (2.2-4.8); NEUTROPHILS % (AUTO) 70.3 % (42.0-75.0); PLATELET COUNT 231 X10^3/uL (150.0-450.0); RED BLOOD COUNT 3.77 X10^6/uL (3.5-5.4); RED CELL DISTRIBUTION WIDTH 15.9 % (11.6-16.5); WHITE BLOOD COUNT 6.3 X10^3/uL (3.6-10.0)
--- NOTE | 2017-12-08 12:05 | RAD ---
HISTORY: COPD and hypertension Study: Single-view chest Comparison: 12/05/2017 Findings: The trachea is midline. The cardiac silhouette is enlarged with a tortuous thoracic aorta. Subsegme ntal atelectasis of the right and left base is observed. 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 The bony thorax is unremar kable. IMPRESSION: 1. No acute cardiopulmonary disease. Reported By:
[2017-12-08 12:13] LABS: BLOOD UREA NITROGEN 15 mg/dL (7-18); CALCIUM 8.4 mg/dL (8.5-10.1); CARBON DIOXIDE 31.5 mmol/L (21-32); CHLORIDE 100 mmol/L (98-107); CREATININE 1.27 mg/dL (0.55-1.02); SODIUM 138 mmol/L (136-145); TROPONIN I < 0.02 ng/mL (0-1.5); eGFR BLACK RACES 53 (>60); eGFR NON BLACK RACES 43 (>60)
[2017-12-08] MEDS ORDERED: VERSED ONE (12:15)
[2017-12-08] MEDS ORDERED: KETALAR ONE (12:16)
[2017-12-08] MEDS ORDERED: DIPRIVAN VIAL 0 ML ONE (12:16)
[2017-12-08 12:17] LABS: ALANINE AMINOTRANSFERASE 68 Units/L (12-78); ALBUMIN 2.9 g/dL (3.4-5.0); ALKALINE PHOSPHATASE 251 Units/L (46-116); ASPARTATE AMINO TRANSFERASE 93 Units/L (15-37); CKMB % 2.1 % (<4); COR CA(FOR HYPOALB) 9.3 mg/dL (8.5-10.1); CREATINE KINASE 90 Units/L (26-192); CREATINE KINASE MB 1.9 ng/mL (0-4.0); MAGNESIUM 1.9 mg/dL (1.7-2.9); TOTAL PROTEIN 6.6 g/dL (6.4-8.2)
--- NOTE | 2017-12-08 13:30 | RAD ---
HISTORY: History of fracture Study: Three views right hand Comparison: 12/03/2017 Findings: Transverse fracture of the 2nd metacarpal is observed. Surgical hardware transversing the distal radi us fracture is again observed. The remainder of the metacarpals and carpal bones appear intact. Dista l phalanges appear unremarkable. IMPRESSION: 1. Subacute fracture within the mid diaphysis of the 2nd metacarpal. 2. Chronic appearing deformity of the distal radius and ulna with postsurgical hardware in place and stable. Reported By:
--- NOTE | 2017-12-08 13:30 | RAD ---
HISTORY: Right hand swelling and redness Study: Right forearm AP and lateral Comparison: 12/03/2017 Findings: The limb is casted. Two pins are present fixing a fracture of the distal radius. There also appears t o be a fracture of the ulnar-styloid present. There is a transverse fracture of the mid 2nd metacarpa l shaft. Little healing is identified in any of the fractures. No soft tissue gas or abnormal periost eal reaction is identified. IMPRESSION: Posttraumatic and postsurgical changes as above Reported By:
[2017-12-08 13:54] VITALS: BP 142/80
== END 2017-12-08 14:29 | disposition short-term general hospital (02) ==
LOC: ER 10:50
PROC: 0RPNX5Z Removal of External Fixation Device from Right Wrist Joint, External Approach (ICD-10-PCS; principal; 2017-12-08)
PROC: 2W38X1Z Immobilization of Right Upper Extremity using Splint (ICD-10-PCS; principal; 2017-12-08)
DX: S52.539A Colles' fracture of unspecified radius, initial encounter for closed fracture (principal); S62.300A Unspecified fracture of second metacarpal bone, right hand, initial encounter for closed fracture; L03.113 Cellulitis of right upper limb; J44.9 Chronic obstructive pulmonary disease, unspecified; W19.XXXA Unspecified fall, initial encounter; Y92.9 Unspecified place or not applicable
CPT/HCPCS: 29125; 36415; 71045; 73090; 73130; 80053; 82550; 82553; 83605; 83735; 84484; 85025; 85610; 85730; 87040; 93005; 93010; 93041; 94640; 96365; 96374; 99283; 99285; A4222; J2250; J2930; J3370; J3490; J7620

== ENCOUNTER 2023-10-18 15:16 | Observation (INO) ==
[2023-10-18] MEDS ORDERED: ZOFRAN INJ 4 MG VIAL IVP ONE ×2 (15:32→19:50)
[2023-10-18] MEDS ORDERED: PROTONIX INJ 40 MG VIAL IVP ONE (15:32)
[2023-10-18] MEDS ORDERED: ZOFRAN INJ 4 MG VIAL ONE ×3 (15:35→19:48)
[2023-10-18] MEDS ORDERED: PROTONIX INJ 40 MG VIAL ONE (15:35)
--- NOTE | 2023-10-18 15:47 | DR.AMS ---
HPI Time Seen Time Seen by Provider: 10/18/23 15:30 Complaint Cheif Complaint Doctors Comments: 82 y/o female brought in via EMS for evaluation, has been ill over the past 1 to 2 days. Started with vomiting and diarrhea. Now having dry heaving. Having generalized weakness.. Patient with a history of COPD and significant hernia. 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 He went to check on her, found her of herhome O2, being confussed. EMS gave IV Zofran, IV fluids. Patient dry heaving, not very verbal. Daughter present, giving history. Reviewed Nurses Notes Reviewed: Yes Source History Provided: Family Member PMH PMH Past Medical History: Anemia, Anxiety, Arthritis, COPD, Dementia, Depression, Migraines, GERD, Headaches, Hypertension, Hypothyroidism and Sleep Apnea Past Surgical History: Yes Surgical History: Appendectomy, , Cholecystectomy, Hysterectomy, Ortho Surgery and Tonsillectomy Family History Family Medical History: Cancer Social History Alcohol Use: None Do you use any recreational Drugs:: No ROS Review of Systems Unable to Obtain Due To: Altered mental status PE Vitals Vital Signs: Temp Pulse Resp BP Pulse Ox O2 Del Method 10/18/23 18:30 174/79 10/18/23 18:30 107 H 32 H 99 10/18/23 18:17 186/82 10/18/23 18:17 106 H 29 H 99 10/18/23 18:15 105 H 26 H 99 10/18/23 18:00 107 H 28 H 99 10/18/23 17:45 100 H 23 100 10/18/23 17:37 106 H 37 H 99 10/18/23 17:15 105 H 32 H 100 10/18/23 17:01 163/74 10/18/23 17:01 99 H 25 H 100 10/18/23 17:01 163/74 10/18/23 17:00 97 H 24 100 10/18/23 16:45 86 23 100 10/18/23 16:31 181/127 10/18/23 16:31 88 23 100 10/18/23 16:30 86 18 100 10/18/23 16:15 86 24 100 10/18/23 16:05 199/93 10/18/23 16:05 87 30 H 100 10/18/23 16:00 186/125 10/18/23 16:00 89 25 H 10/18/23 15:45 88 34 H 100 10/18/23 15:30 174/83 10/18/23 15:30 81 19 100 10/18/23 15:23 86 98 10/18/23 15:22 177/90 10/18/23 15:31 98.7 F 91 H 26 H 177/90 96 Room Air General General Appearance: Other (Awake, appears uncomfortable, dry heaving. Keeping eyes closed, following commands.) ENT ENT Exam: Mucous Membranes Dry Neck Neck Exam: Normal Inspection Respiratory Respiratory Exam: Normal Lung Sounds Bilat and Other (Decreased breath sounds at bases); negative Accessory Muscle Use or Respiratory Distress Abdominal Exam Abdominal Exam: Normal Bowel Sounds, Soft and Tenderness (across upper abdomen, no guarding/rebound) Extremities Extremities Exam: Normal Inspection; negative Edema Back Back Exam: Normal Inspection; negative (R) CVA Tenderness or (L) CVA Tenderness Neurological Neurological Exam: Other (There is generalized weakness, no focal deficits, follows commands) Skin Skin Exam: Warm, Dry and Other (poor turgor) COURSE Treatment Treatment: 82-year-old female brought in by EMS, ill for the past 2 days. Patient with vomiting, now dry heaving. Was having degree of confusion, not keeping her O2 on for her COPD. Having dry heaving here. Workup initiated. Patient given IV fluids, IV zofran. Chest x-ray shows large hiatal hernia, patient has history of same. Radiology reports bilateral lower lobe infiltrates, hard to say for sure with her hernia. Urine obtained via cath specimen, urine concerning for degree of dehydration and UTI. Patient given IV Rocephin to start. Labs overall acceptable, white count a bit elevated. Appears dehydrated. Recommend admission, discussed with Dr. Lopez, on-call for hospital admissions. Will add IV doxycycline to her IV Rocephin. Will pursue a CT of the abdomen pelvis for further evaluation. 1849 -CT shows the large hiatal hernia to be present, she has a significant scoliosis of her thoracic spine, no acute intra-abdominal pathology. ROR Labs Reviewed Laboratory Results Reviewed?: Yes 10/18/23 15:45 10/18/23 15:45 Laboratory: WBC 13.9 X10^3/uL (3.6-10.0) H 10/18/23 15:45 RBC 4.45 X10^6/uL (3.5-5.4) 10/18/23 15:45 Hgb 13.8 g/dL (12.0-16.0) 10/18/23 15:45 Hct 41.4 % (36.0-47.0) 10/18/23 15:45 MCV 93.1 fL (80.0-100.0) 10/18/23 15:45 MCH 31.1 pg (27.0-34.0) 10/18/23 15:45 MCHC 33.4 g/dL (33.0-35.0) 10/18/23 15:45 RDW 14.2 % (11.6-16.5) 10/18/23 15:45 Plt Count 190 X10^3/uL (150.0-450.0) 10/18/23 15:45 MPV 7.9 fL (7.4-11.0) 10/18/23 15:45 Neut % (Auto) 87.8 % (42.0-75.0) H 10/18/23 15:45 Lymph % (Auto) 4.7 % (21.0-51.0) L 10/18/23 15:45 [place] % (Auto) 6.0 % (0.0-13.0) 10/18/23 15:45 Eos % (Auto) 0.0 % (0.9-2.9) L 10/18/23 15:45 Baso % (Auto) 1.5 % (0.2-1.0) H 10/18/23 15:45 Neut # (Auto) 12.2 x10^3/uL (2.2-4.8) H 10/18/23 15:45 Lymph # (Auto) 0.7 X10^3/uL (1.3-2.9) L 10/18/23 15:45 [place] # (Auto) 0.8 x10^3/uL (0.3-0.8) 10/18/23 15:45 Eos # (Auto) 0.0 x10^3/uL (0.0-0.2) 10/18/23 15:45 Baso # (Auto) 0.2 X10^3/uL (0.0-0.1) H 10/18/23 15:45 Absolute Nucleated RBC 0.0 /100WBC 10/18/23 15:45 Sodium 134 mmol/L (136-145) L 10/18/23 15:45 Corrected Sodium 134 mmol/L (136-145) L 10/18/23 15:45 Potassium 4.1 mmol/L (3.5-5.1) 10/18/23 15:45 Chloride 94 mmol/L (98-107) L 10/18/23 15:45 Carbon Dioxide 25.9 mmol/L (21-32) 10/18/23 15:45 BUN 27 mg/dL (7-18) H 10/18/23 15:45 Creatinine 1.33 mg/dL (0.55-1.02) H 10/18/23 15:45 Est GFR (MDRD) Af Amer 49 (>60) L 10/18/23 15:45 Est GFR (MDRD) Non-Af 41 (>60) L 10/18/23 15:45 Glucose 114 mg/dL (65-99) H 10/18/23 15:45 Calcium 10.3 mg/dL (8.5-10.1) H 10/18/23 15:45 Corrected Calcium TNP 10/18/23 15:45 Total Bilirubin 1.20 mg/dL (0.2-1.0) H 10/18/23 15:45 AST 22 Units/L (15-37) 10/18/23 15:45 ALT 11 Units/L (12-78) L 10/18/23 15:45 Alkaline Phosphatase 97 Units/L (46-116) 10/18/23 15:45 Troponin I High Sens 18.7 ng/L (4.0-60.0) 10/18/23 15:45 Total Protein 7.9 g/dL (6.4-8.2) 10/18/23 15:45 Albumin 3.6 g/dL (3.4-5.0) 10/18/23 15:45 Globulin 4.3 g/dL (2.5-4.5) 10/18/23 15:45 Albumin/Globulin Ratio 0.8 Ratio (1.1-2.1) L 10/18/23 15:45 Lipase 29 Units/L (16-77) 10/18/23 15:45 Specimen Type Catherized urine 10/18/23 15:56 Urine Color Dark yellow (YELLOW) 10/18/23 15:56 Urine Appearance Slightly hazy (CLEAR) 10/18/23 15:56 Urine pH 5.0 (5.0 - 8.0) 10/18/23 15:56 Ur Specific [place] 1.025 (1.000-1.030) 10/18/23 15:56 Urine Protein 3+ (NEGATIVE) 10/18/23 15:56 Urine Glucose (UA) Negative (NEGATIVE) 10/18/23 15:56 Urine Ketones 3+ (NEGATIVE) 10/18/23 15:56 Urine Blood 2+ (NEGATIVE) 10/18/23 15:56 Urine Nitrite Negative (NEGATIVE) 10/18/23 15:56 Urine Bilirubin 1+ (NEGATIVE) 10/18/23 15:56 Urine Urobilinogen 2+ (NORMAL) 10/18/23 15:56 Ur Leukocyte Esterase 1+ (NEGATIVE) 10/18/23 15:56 Urine RBC 0-2 /HPF (0-3) 10/18/23 15:56 Urine WBC 5-10 /HPF (0-5) A 10/18/23 15:56 Ur Squamous Epith Cells Few /HPF (NEGATIVE) 10/18/23 15:56 Urine Bacteria 2+ /HPF (NEGATIVE) 10/18/23 15:56 Hyaline Casts Many /LPF (NEGATIVE) 10/18/23 15:56 Urine Mucus Few /HPF (NEGATIVE) 10/18/23 15:56 Ur Culture Indicated? Yes/culture set up 10/18/23 15:56 SARS-CoV-2 (PCR) Negative (NEGATIVE) 10/18/23 15:21 Influenza Type A (PCR) Negative (NEGATIVE) 10/18/23 15:21 Influenza Type B (PCR) Negative (NEGATIVE) 10/18/23 15:21 RSV (PCR) Negative (NEGATIVE) 10/18/23 15:21 XRAY XRAY Interpreted by: Radiologist X-ray Results: EXAM: ABDCMEN/PELVIS WITH CON HISTORY: DIVERTICULITIS, VOMITING, UPPER ABDOMNIAL PAIN; COMPARISON: September 10, 2023 TECHNIQUE: Axial CT images of the abdomen and pelvis were obtained after the administration of Omnipaque 350 IV contrast and reformatted into coronal and sagittal planes for further evaluation. Radiation dose: 235.10 mGy-cm total DLP FINDINGS: Lung bases are clear. Large bilateral diaphragmatic hernia containing small/large bowel, pancreas and stomach. Stomach appears grossly normal. Solid visceral organs of the upper abdomen are unremarkable. Status post cholecystectomy. Homogeneous enhancement of the kidneys without hydronephrosis or hydroureter. Unremarkable appearance of the urinary bladder. Status post hysterectomy. Colonic diverticulosis without diverticulitis. Otherwise, unremarkable appearance of the small and large bowel. No evidence of acute appendicitis. No pneumoperitoneum. No significant fluid collection. No adenopathy. No acute osseous abnormality. IMPRESSION: 1. No acute intra-abdominal abnormality detected. 2. Large bilateral diaphragmatic hernia containing small/large bowel, pancreas and stomach. No significant changes. 3. Colonic diverticulosis without diverticulitis. THIS IS AN ELECTRONICALLY VERIFIED FINAL REPORT 10/18/2023 6:22 PM - Electronically signed by Joey Alejandro MD Opioid Opioid Risk Tool Age (Salty box if 16-45): No History of Preadolescent Sexual Abuse: No Total: 0 Total Score Risk Category: Low Risk Copyright: Enrico SUBRAMANIAN predicting aberrant behaviors Discharge Plan Diagnosis Discharge Problem: Pneumonia, Acute UTI, COPD (chronic obstructive pulmonary disease), Volume depletion Discharge Plan Patient Disposition: 09 ADMITTED INPATIENT Condition: Stable Prescriptions: No Action albuterol sulfate 2.5 MG solution for nebulization 1 inh INH QID PRN atorvastatin 20 mg tablet 20 mg PO QPM ipratropium-albuterol 0.5 mg-3 mg(2.5 mg base)/3 mL solution for nebulization 3 ml INHALATION QID citalopram 40 mg tablet 40 mg PO QDAY fexofenadine 60 mg tablet 60 mg PO BID cetirizine 10 mg tablet 10 mg PO QDAY tizanidine 4 mg tablet 2 - 4 mg PO QPM PRN clonazepam 0.5 mg tablet 0.5 mg PO QDAY PRN hydrocodone-acetaminophen 10-325 mg tablet 1 tab PO BID PRN levothyroxine 100 mcg tablet 100 mcg PO QDAY famotidine 20 mg tablet 20 mg PO BID cyanocobalamin (vitamin B-12) 1,000 mcg/mL solution 1,000 mcg IM QMONTH esomeprazole magnesium 40 mg capsule,delayed release(DR/EC) 80 mg PO QDAY docusate sodium 100 mg capsule 100 mg PO BID PRN folic acid 1 mg tablet 1 mg PO QDAY mupirocin 2 % ointment 1 applic TOPICAL TID PRN gabapentin 100 mg capsule 200 mg PO QID carbidopa-levodopa 25-100 mg tablet 1 tab PO TID oxybutynin chloride 5 mg tablet 5 mg PO QDAY fluticasone propionate 50 mcg/actuation spray,suspension 1 spray INTRANASAL QDAY PRN budesonide-formoterol [Symbicort] 160-4.5 mcg/actuation HFA aerosol inhaler 2 puff INHALATION BID diclofenac sodium 1 % gel 2 g TOPICAL QID PRN Ferretts 325 mg (106 mg iron) tablet 325 mg PO QDAY cholecalciferol (vitamin D3) [Vitamin D3] 125 mcg (5,000 unit) tablet 250 mcg PO QDAY roflumilast 500 mcg tablet 500 mcg PO QDAY Spiriva Respimat 2.5 mcg/actuation mist 2 puff INHALATION QDAY ProAir RespiClick 90 mcg/actuation aerosol powdr breath activated 2 inh INHALATION Q4-6H PRN Namzaric 28-10 mg capsule,sprinkle,ER 24hr 1 cap PO QDAY Health Concerns: Post Hospitalization: new medications and changes needed to prevent readmission or further decline. Pt educated and given instructions on all concerns. Plan of Treatment: Continue with present treatment and follow up plan. Pt is to keep follow up appointment as instructed and take medications as ordered. Orders to Discharge Patient Discharge Orders: Transfer (Routine); Ordered 10/18/23 Ordered By: Kelvin Baires Follow ups/Referrals Follow ups/Referrals: VERONICA EM [Primary Care Provider] - 3 days
--- NOTE | 2023-10-18 15:49 | RAD ---
EXAM:CHEST, 1 VIEWHISTORY:vomiting;COMPARISON:Prior study or studies were utilized for comparison during interpretation with the most relevant dated 09/17/2023TECHNIQUE:CHEST, 1 VIEWFINDINGS:Chest:Lines and tubes: Cardiac leads overlie the chest.Mediastinum: Cardiac and mediastinal shadow is within normal limits for size and contour.Pulmonary vessels: No pulmonary vascular congestion.Lung cintron: Dense consolidations are seen in both bases. Diaphragmatic flattening and hyperinflation notedPleura: No effusion. No pneumothorax.Bones and soft tissues: No acute osseous or soft tissue abnormality.IMPRESSION:1. Dense consolidations in both lung bases suggest pneumonia superimposed on COPDTHIS IS AN ELECTRONICALLY VERIFIED FINAL REPORT10/18/2023 3:46 PM - Electronically signed by Tong Hung MD
[2023-10-18 15:50] LABS: BASOPHILS # (AUTO) 0.2 X10^3/uL (0.0-0.1); BASOPHILS % (AUTO) 1.5 % (0.2-1.0); HEMATOCRIT 41.4 % (36.0-47.0); HEMOGLOBIN 13.8 g/dL (12.0-16.0); LYMPHOCYTES # (AUTO) 0.7 X10^3/uL (1.3-2.9); LYMPHOCYTES % (AUTO) 4.7 % (21.0-51.0); MEAN CORPUSCULAR HEMOGLOBIN 31.1 pg (27.0-34.0); MEAN CORPUSCULAR HGB CONC 33.4 g/dL (33.0-35.0); MEAN CORPUSCULAR VOLUME 93.1 fL (80.0-100.0); MEAN PLATELET VOLUME 7.9 fL (7.4-11.0); MONOCYTES # (AUTO) 0.8 x10^3/uL (0.3-0.8); NEUTROPHILS # (AUTO) 12.2 x10^3/uL (2.2-4.8); NEUTROPHILS % (AUTO) 87.8 % (42.0-75.0); PLATELET COUNT 190 X10^3/uL (150.0-450.0); RED BLOOD COUNT 4.45 X10^6/uL (3.5-5.4); RED CELL DISTRIBUTION WIDTH 14.2 % (11.6-16.5); WHITE BLOOD COUNT 13.9 X10^3/uL (3.6-10.0)
[2023-10-18 16:04] LABS: ALANINE AMINOTRANSFERASE 11 Units/L (12-78); ALBUMIN 3.6 g/dL (3.4-5.0); ALKALINE PHOSPHATASE 97 Units/L (46-116); ASPARTATE AMINO TRANSFERASE 22 Units/L (15-37); BLOOD UREA NITROGEN 27 mg/dL (7-18); CALCIUM 10.3 mg/dL (8.5-10.1); CARBON DIOXIDE 25.9 mmol/L (21-32); CHLORIDE 94 mmol/L (98-107); COR NA(FOR HYPERGLY) 134 mmol/L (136-145); CREATININE 1.33 mg/dL (0.55-1.02); GLUCOSE 114 mg/dL (65-99); LIPASE 29 Units/L (16-77); POTASSIUM 4.1 mmol/L (3.5-5.1); SODIUM 134 mmol/L (136-145); TOTAL PROTEIN 7.9 g/dL (6.4-8.2); eGFR NON BLACK RACES 41 (>60)
[2023-10-18 16:11] LABS: BILIRUBIN,URINE 1+ (NEGATIVE); BLOOD/HEMOGLOBIN,URINE 2+ (NEGATIVE); GLUCOSE, URINE NEGATIVE (NEGATIVE); KETONES,URINE 3+ (NEGATIVE); LEUKOCYTE ESTERASE ,URINE 1+ (NEGATIVE); NITRITES,URINE NEGATIVE (NEGATIVE); PROTEIN,URINE 3+ (NEGATIVE); UROBILINOGEN,URINE 2+ (NORMAL)
[2023-10-18 16:12] LABS: COLOR,URINE DARK YELLOW (YELLOW)
[2023-10-18 16:13] LABS: APPEARANCE,URINE SLIGHTLY HAZY (CLEAR)
[2023-10-18 16:21] LABS: BACTERIA,URINE 2+ /HPF (NEGATIVE); RBC,URINE 0-2 /HPF (0-3); SQUAMOUS EPITHELIAL CELL,UR FEW /HPF (NEGATIVE)
[2023-10-18 16:22] LABS: HYALINE CASTS, URINE MANY /LPF (NEGATIVE)
[2023-10-18] MEDS ORDERED: ROCEPHIN VIAL 1 GRAM IV ONE (16:42)
[2023-10-18] MEDS ORDERED: APRESOLINE INJ 20 MG VIAL IVP ONE (16:42)
[2023-10-18] MEDS ORDERED: ROCEPHIN VIAL 1 GRAM ONE (16:43)
[2023-10-18] MEDS ORDERED: ROCEPHIN VIAL 1 GRAM IVP ONE (16:43)
[2023-10-18] MEDS ORDERED: APRESOLINE INJ 20 MG VIAL ONE (16:43)
[2023-10-18] MEDS: ROCEPHIN VIAL 1 GRAM 1 G in NS 100 ML IV 100 ML IV SCH (17:01)
[2023-10-18] MEDS ORDERED: OMNIPAQUE 350 mg/mL 100 mL BTL 100 ML ONE (17:07)
--- NOTE | 2023-10-18 18:26 | CT ---
EXAM:ABDCMEN/PELVIS WITH CONHISTORY:DIVERTICULITIS, VOMITING, UPPER ABDOMNIAL PAIN;COMPARISON:September 10, 2023TECHNIQUE:Axial CT images of the abdomen and pelvis were obtained after the administration of Omnipaque 350 IV contrast and reformatted into coronal and sagittal planes for further evaluation.Radiation dose: 235.10 mGy-cm total DLPFINDINGS:Lung bases are clear.Large bilateral diaphragmatic hernia containing small/large bowel, pancreas and stomach.Stomach appears grossly normal.Solid visceral organs of the upper abdomen are unremarkable.Status post cholecystectomy.Homogeneous enhancement of the kidneys without hydronephrosis or hydroureter.Unremarkable appearance of the urinary bladder.Status post hysterectomy.Colonic diverticulosis without diverticulitis.Otherwise, unremarkable appearance of the small and large bowel.No evidence of acute appendicitis.No pneumoperitoneum.No significant fluid collection.No adenopathy.No acute osseous abnormality.IMPRESSION:1. No acute intra-abdominal abnormality detected.2. Large bilateral diaphragmatic hernia containing small/large bowel, pancreas and stomach. No significant changes.3. Colonic diverticulosis without diverticulitis.THIS IS AN ELECTRONICALLY VERIFIED FINAL REPORT10/18/2023 6:22 PM - Electronically signed by Joey Alejandro MD
[2023-10-18] MEDS ORDERED: PROVENTIL NEB TX 0.083% 2.5MG/ 3ML NEB PRN (21:27)
[2023-10-18] MEDS ORDERED: PATIENT'S HOME MEDICATION (Budesonide-Formoterol [Symbicort] 160-4.5 mcg/actuation HFA aer IN SCH (21:27)
[2023-10-18] MEDS ORDERED: COLACE CAP 100 MG PO PRN (21:27)
[2023-10-18] MEDS ORDERED: CONSULT PHARMACY - POTASSIUM & MAGNESIUM XX SCH (21:27)
[2023-10-18] MEDS ORDERED: D5 1/2 NS 1,000 ML 1,000 ML IV SCH (21:27)
[2023-10-18] MEDS ORDERED: DUONEB 0.5 MG/3 MG (3 mL) NEB ONE (21:31)
[2023-10-18] MEDS: ZOFRAN INJ 4 MG VIAL IVP SCH (21:56)
[2023-10-18] MEDS: VIBRAMYCIN 100 MG in D5W 250 ML IV 250 ML IV SCH (21:56)
[2023-10-18] MEDS: NEURONTIN CAP 100 MG PO SCH (21:57)
[2023-10-18] MEDS ORDERED: DUONEB 0.5 MG/3 MG (3 mL) NEB SCH (22:00)
[2023-10-18] MEDS: NORCO 10/325 TAB PO PRN (23:44)
[2023-10-19] MEDS: KLONOPIN TAB 0.5 MG PO PRN (00:26)
[2023-10-19] MEDS ORDERED: BUTT CREAM (COMPOUND) ONE (00:38)
[2023-10-19 01:56] VITALS: BMI 24.1
[2023-10-19] MEDS: ZOFRAN INJ 4 MG VIAL IVP SCH ×4 (04:23→20:47)
[2023-10-19] MEDS: BUTT CREAM (COMPOUND) TOP PRN (05:35)
[2023-10-19 06:30] LABS: BASOPHILS # (AUTO) 0.1 X10^3/uL (0.0-0.1); BASOPHILS % (AUTO) 0.7 % (0.2-1.0); HEMATOCRIT 40.3 % (36.0-47.0); HEMOGLOBIN 13.2 g/dL (12.0-16.0); LYMPHOCYTES # (AUTO) 0.7 X10^3/uL (1.3-2.9); LYMPHOCYTES % (AUTO) 5.5 % (21.0-51.0); MEAN CORPUSCULAR HEMOGLOBIN 30.7 pg (27.0-34.0); MEAN CORPUSCULAR HGB CONC 32.7 g/dL (33.0-35.0); MEAN PLATELET VOLUME 8.6 fL (7.4-11.0); MONOCYTES # (AUTO) 0.8 x10^3/uL (0.3-0.8); MONOCYTES % (AUTO) 6.4 % (0.0-13.0); NEUTROPHILS # (AUTO) 10.8 x10^3/uL (2.2-4.8); NEUTROPHILS % (AUTO) 87.4 % (42.0-75.0); PLATELET COUNT 175 X10^3/uL (150.0-450.0); RED BLOOD COUNT 4.29 X10^6/uL (3.5-5.4); RED CELL DISTRIBUTION WIDTH 14.2 % (11.6-16.5); WHITE BLOOD COUNT 12.3 X10^3/uL (3.6-10.0)
[2023-10-19 07:01] LABS: ALANINE AMINOTRANSFERASE 13 Units/L (12-78); ALBUMIN 3.5 g/dL (3.4-5.0); ALKALINE PHOSPHATASE 88 Units/L (46-116); ASPARTATE AMINO TRANSFERASE 27 Units/L (15-37); BLOOD UREA NITROGEN 29 mg/dL (7-18); CALCIUM 9.4 mg/dL (8.5-10.1); CARBON DIOXIDE 21.6 mmol/L (21-32); CHLORIDE 95 mmol/L (98-107); CREATININE 1.25 mg/dL (0.55-1.02); GLUCOSE 101 mg/dL (65-99); POTASSIUM 3.7 mmol/L (3.5-5.1); SODIUM 135 mmol/L (136-145); TOTAL PROTEIN 7.8 g/dL (6.4-8.2); eGFR NON BLACK RACES 44 (>60)
[2023-10-19] MEDS ORDERED: CONSULT PHARMACY - POTASSIUM & MAGNESIUM XX SCH (08:00)
[2023-10-19] MEDS: PULMICORT NEB TX 0.5 MG NEB SCH ×2 (08:34→20:36)
[2023-10-19] MEDS: DUONEB 0.5 MG/3 MG (3 mL) NEB SCH ×4 (08:34→20:36)
[2023-10-19] MEDS ORDERED: D5 1/2 NS + KCL 20 MEQ/L 1,000 ML IV SCH (09:00)
[2023-10-19] MEDS ORDERED: PATIENT'S HOME MEDICATION (Citalopram 40 mg tablet) PO SCH (09:00)
[2023-10-19] MEDS ORDERED: SYMBICORT INH 160/4.5 mcg IN SCH (09:00)
[2023-10-19] MEDS ORDERED: CATAPRES TAB 0.1 MG PO NR (09:19)
--- NOTE | 2023-10-19 09:32 | EKG ---
Test Reason : bp 184/88 Blood Pressure : */* mmHG Vent. Rate : 109 BPM Atrial Rate : 110 BPM P-R Int : 152 ms QRS Dur : 86 ms QT Int : 262 ms P-R-T Axes : 59 66 57 degrees QTc Int : 352 ms Sinus tachycardia with occasional premature ventricular complexes Nonspecific T wave abnormality Abnormal ECG When compared with ECG of 11-SEP-2023 17:29, premature ventricular complexes are now present Nonspecific T wave abnormality now evident in Inferior leads QT has shortened heart rate is faster Confirmed by Carlos Valverde MD ([id number]) on 10/20/2023 2:08:41 PM Referred By: Confirmed By: Carlos Valverde MD
[2023-10-19] MEDS ORDERED: NS 1,000 ML IV 1,000 ML IV ONE (09:34)
[2023-10-19] MEDS ORDERED: NS 500 ML IV 500 ML IV ONE (09:35)
[2023-10-19] MEDS: PROTONIX INJ 40 MG VIAL IVP SCH (10:18)
[2023-10-19] MEDS: CELEXA PO SCH (10:29)
[2023-10-19] MEDS: DALIRESP PO SCH (10:30)
[2023-10-19] MEDS: DITROPAN TAB 5 MG PO SCH (10:30)
[2023-10-19] MEDS: NEURONTIN CAP 100 MG PO SCH ×4 (10:30→20:47)
[2023-10-19] MEDS: SYNTHROID 100 mcg TAB PO SCH (10:30)
[2023-10-19] MEDS: ROCEPHIN VIAL 1 GRAM 1 G in NS 100 ML IV 100 ML IV SCH (10:30)
[2023-10-19] MEDS: NAMENDA TAB 10 MG PO SCH (10:30)
[2023-10-19] MEDS: VIBRAMYCIN 100 MG in D5W 250 ML IV 250 ML IV SCH ×2 (10:31→20:48)
[2023-10-19] MEDS: LOVENOX INJ 30 MG SYR SC SCH (10:31)
[2023-10-19] MEDS ORDERED: APRESOLINE INJ 20 MG VIAL IVP ONE (11:28)
[2023-10-19] MEDS ORDERED: COREG TAB 12.5 MG PO SCH (12:00)
[2023-10-19] MEDS: NS 1,000 ML IV 1,000 ML IV SCH ×2 (14:31→20:48)
[2023-10-19] MEDS ORDERED: MICARDIS PO ONE (16:18)
[2023-10-19] MEDS ORDERED: MICARDIS ONE (16:30)
[2023-10-19] MEDS: COREG TAB 12.5 MG PO SCH (20:48)
[2023-10-19] MEDS: ARICEPT TAB 10 MG PO SCH (20:48)
[2023-10-20] MEDS: ZOFRAN INJ 4 MG VIAL IVP SCH ×4 (02:51→21:16)
[2023-10-20] MEDS: NORCO 10/325 TAB PO PRN ×2 (05:00→20:19)
[2023-10-20 05:25] LABS: BASOPHILS % (AUTO) 0.4 % (0.2-1.0); EOSINOPHILS % (AUTO) 0.5 % (0.9-2.9); HEMATOCRIT 35.9 % (36.0-47.0); HEMOGLOBIN 11.9 g/dL (12.0-16.0); LYMPHOCYTES # (AUTO) 0.8 X10^3/uL (1.3-2.9); LYMPHOCYTES % (AUTO) 11.8 % (21.0-51.0); MEAN CORPUSCULAR HEMOGLOBIN 31.1 pg (27.0-34.0); MEAN CORPUSCULAR HGB CONC 33.2 g/dL (33.0-35.0); MEAN CORPUSCULAR VOLUME 93.7 fL (80.0-100.0); MEAN PLATELET VOLUME 7.5 fL (7.4-11.0); MONOCYTES # (AUTO) 0.8 x10^3/uL (0.3-0.8); MONOCYTES % (AUTO) 11.7 % (0.0-13.0); NEUTROPHILS # (AUTO) 4.9 x10^3/uL (2.2-4.8); NEUTROPHILS % (AUTO) 75.6 % (42.0-75.0); PLATELET COUNT 138 X10^3/uL (150.0-450.0); RED BLOOD COUNT 3.83 X10^6/uL (3.5-5.4); RED CELL DISTRIBUTION WIDTH 13.9 % (11.6-16.5); WHITE BLOOD COUNT 6.5 X10^3/uL (3.6-10.0)
[2023-10-20] MEDS: BUTT CREAM (COMPOUND) TOP PRN (05:34)
[2023-10-20] MEDS: NS 1,000 ML IV 1,000 ML IV SCH (05:38)
[2023-10-20 05:41] LABS: ALANINE AMINOTRANSFERASE 8 Units/L (12-78); ALBUMIN 2.6 g/dL (3.4-5.0); ALKALINE PHOSPHATASE 66 Units/L (46-116); ASPARTATE AMINO TRANSFERASE 18 Units/L (15-37); BLOOD UREA NITROGEN 14 mg/dL (7-18); CALCIUM 8.3 mg/dL (8.5-10.1); CARBON DIOXIDE 28.1 mmol/L (21-32); CHLORIDE 101 mmol/L (98-107); COR CA(FOR HYPOALB) 9.4 mg/dL (8.5-10.1); CREATININE 0.91 mg/dL (0.55-1.02); GLUCOSE 85 mg/dL (65-99); MAGNESIUM 1.4 mg/dL (2.0-2.9); POTASSIUM 3.2 mmol/L (3.5-5.1); SODIUM 136 mmol/L (136-145); TOTAL PROTEIN 6.1 g/dL (6.4-8.2); eGFR NON BLACK RACES > 60 (>60)
[2023-10-20] MEDS ORDERED: CONSULT PHARMACY - POTASSIUM & MAGNESIUM XX SCH (06:00)
--- NOTE | 2023-10-20 06:56 | RAD ---
EXAM:AP chestHISTORY:Short of breath COPDCOMPARISON:10/18/2023, 02/23/2023FINDINGS:Re-demonstration of extensive opacity in both lower lungs, obscuring pulmonary, hilar, and pleural detail. The extreme upper lobes remain clear. Heart size is unchanged.IMPRESSION:Persistent bibasal opacification. The findings have been described on previous studies to represent a very large hiatal hernia occupying the lower chest. Recent CT has shown this hernia to contain small and large bowel, pancreas and stomach. This effectively obscures lower lobe detail; abnormality in the lower lobes can not be excluded.THIS IS AN ELECTRONICALLY VERIFIED FINAL REPORT10/20/2023 6:53 AM - Electronically signed by Damian Watters MD
[2023-10-20] MEDS: DUONEB 0.5 MG/3 MG (3 mL) NEB SCH ×4 (08:32→21:24)
[2023-10-20] MEDS: PULMICORT NEB TX 0.5 MG NEB SCH ×2 (08:33→21:24)
[2023-10-20] MEDS ORDERED: K-DUR TAB 20 MEQ PO SCH (09:00)
[2023-10-20] MEDS ORDERED: MAG-OX TAB PO SCH (09:00)
[2023-10-20] MEDS: CELEXA PO SCH (09:38)
[2023-10-20] MEDS: VIBRAMYCIN 100 MG in D5W 250 ML IV 250 ML IV SCH ×2 (09:38→20:20)
[2023-10-20] MEDS: SYNTHROID 100 mcg TAB PO SCH (09:38)
[2023-10-20] MEDS: PROTONIX INJ 40 MG VIAL IVP SCH (09:39)
[2023-10-20] MEDS: ROCEPHIN VIAL 1 GRAM 1 G in NS 100 ML IV 100 ML IV SCH (09:39)
[2023-10-20] MEDS: NS + KCL 20 MEQ/L 1,000 ML with MAGNESIUM SULFATE 50% INJ VIAL 1 G IV SCH ×4 (09:39→17:50)
[2023-10-20] MEDS: NEURONTIN CAP 100 MG PO SCH ×4 (09:40→20:19)
[2023-10-20] MEDS: DITROPAN TAB 5 MG PO SCH (09:40)
[2023-10-20] MEDS: NAMENDA TAB 10 MG PO SCH (09:40)
[2023-10-20] MEDS: LOVENOX INJ 30 MG SYR SC SCH (09:40)
[2023-10-20] MEDS: DALIRESP PO SCH (09:40)
[2023-10-20] MEDS: COREG TAB 12.5 MG PO SCH ×2 (09:41→20:18)
[2023-10-20] MEDS: PEPCID 20 MG VIAL 20 MG in NS 50 ML IV 50 ML IV SCH ×2 (17:51→20:20)
[2023-10-20] MEDS: ARICEPT TAB 10 MG PO SCH (20:18)
[2023-10-20] MEDS: KLONOPIN TAB 0.5 MG PO PRN (20:19)
[2023-10-20] MEDS ORDERED: NORVASC TAB 5 MG PO ONE (21:17)
[2023-10-20] MEDS ORDERED: NORVASC TAB 5 MG ONE (21:19)
[2023-10-20] MEDS: MICARDIS PO SCH (22:30)
[2023-10-20] MEDS ORDERED: MICARDIS ONE (22:37)
[2023-10-21] MEDS: NS + KCL 20 MEQ/L 1,000 ML with MAGNESIUM SULFATE 50% INJ VIAL 1 G IV SCH ×8 (02:30→16:53)
[2023-10-21] MEDS: ZOFRAN INJ 4 MG VIAL IVP SCH ×4 (02:31→21:25)
[2023-10-21 05:46] LABS: BASOPHILS # (AUTO) 0.1 X10^3/uL (0.0-0.1); BASOPHILS % (AUTO) 0.5 % (0.2-1.0); EOSINOPHILS # (AUTO) 0.1 x10^3/uL (0.0-0.2); EOSINOPHILS % (AUTO) 0.7 % (0.9-2.9); HEMATOCRIT 40.5 % (36.0-47.0); HEMOGLOBIN 13.3 g/dL (12.0-16.0); LYMPHOCYTES # (AUTO) 0.9 X10^3/uL (1.3-2.9); LYMPHOCYTES % (AUTO) 7.8 % (21.0-51.0); MEAN CORPUSCULAR HEMOGLOBIN 30.5 pg (27.0-34.0); MEAN CORPUSCULAR HGB CONC 32.8 g/dL (33.0-35.0); MEAN PLATELET VOLUME 7.6 fL (7.4-11.0); MONOCYTES # (AUTO) 1.1 x10^3/uL (0.3-0.8); MONOCYTES % (AUTO) 9.8 % (0.0-13.0); NEUTROPHILS # (AUTO) 9.3 x10^3/uL (2.2-4.8); NEUTROPHILS % (AUTO) 81.2 % (42.0-75.0); PLATELET COUNT 172 X10^3/uL (150.0-450.0); RED BLOOD COUNT 4.35 X10^6/uL (3.5-5.4); RED CELL DISTRIBUTION WIDTH 14.2 % (11.6-16.5); WHITE BLOOD COUNT 11.4 X10^3/uL (3.6-10.0)
[2023-10-21 06:03] LABS: ALANINE AMINOTRANSFERASE 10 Units/L (12-78); ALBUMIN 2.7 g/dL (3.4-5.0); ALKALINE PHOSPHATASE 74 Units/L (46-116); ASPARTATE AMINO TRANSFERASE 17 Units/L (15-37); BLOOD UREA NITROGEN 10 mg/dL (7-18); CALCIUM 8.4 mg/dL (8.5-10.1); CHLORIDE 94 mmol/L (98-107); COR CA(FOR HYPOALB) 9.4 mg/dL (8.5-10.1); COR NA(FOR HYPERGLY) 131 mmol/L (136-145); CREATININE 0.68 mg/dL (0.55-1.02); GLUCOSE 112 mg/dL (65-99); MAGNESIUM 1.8 mg/dL (2.0-2.9); POTASSIUM 3.4 mmol/L (3.5-5.1); SODIUM 131 mmol/L (136-145); TOTAL PROTEIN 6.6 g/dL (6.4-8.2); eGFR NON BLACK RACES > 60 (>60)
--- NOTE | 2023-10-21 06:29 | RAD ---
EXAM:Portable AP chestHISTORY:Short of breath pneumoniaCOMPARISON:10/20/2023FINDINGS:T here is no change in appearance of heart, lungs are mediastinum. Diffuse opacity continues in both lower lungs consistent with large intrathoracic hernia; underlying parenchymal airspace disease may be present. The upper lobes remain clear.IMPRESSION:No change in 1 day.THIS IS AN ELECTRONICALLY VERIFIED FINAL REPORT10/21/2023 6:26 AM - Electronically signed by Damian Watters MD
[2023-10-21] MEDS ORDERED: CONSULT PHARMACY - POTASSIUM & MAGNESIUM XX SCH (07:00)
[2023-10-21] MEDS ORDERED: MICARDIS PO SCH (09:00)
[2023-10-21] MEDS ORDERED: K-DUR TAB 20 MEQ PO SCH (09:00)
[2023-10-21] MEDS: ROCEPHIN VIAL 1 GRAM 1 G in NS 100 ML IV 100 ML IV SCH (09:01)
[2023-10-21] MEDS: VIBRAMYCIN 100 MG in D5W 250 ML IV 250 ML IV SCH ×2 (09:01→22:34)
[2023-10-21] MEDS: PEPCID 20 MG VIAL 20 MG in NS 50 ML IV 50 ML IV SCH ×2 (09:01→20:11)
[2023-10-21] MEDS: LOVENOX INJ 30 MG SYR SC SCH (09:02)
[2023-10-21] MEDS: PROTONIX INJ 40 MG VIAL IVP SCH (09:02)
[2023-10-21] MEDS: DALIRESP PO SCH (09:03)
[2023-10-21] MEDS: NAMENDA TAB 10 MG PO SCH (09:03)
[2023-10-21] MEDS: NEURONTIN CAP 100 MG PO SCH ×4 (09:03→20:11)
[2023-10-21] MEDS: MICARDIS PO SCH (09:03)
[2023-10-21] MEDS: SYNTHROID 100 mcg TAB PO SCH (09:03)
[2023-10-21] MEDS: COREG TAB 12.5 MG PO SCH ×2 (09:03→20:11)
[2023-10-21] MEDS: MAG-OX TAB PO SCH ×2 (09:03→11:30)
[2023-10-21] MEDS: CELEXA PO SCH (09:04)
[2023-10-21] MEDS: NORVASC TAB 5 MG PO SCH (09:04)
[2023-10-21] MEDS: DITROPAN TAB 5 MG PO SCH (09:04)
[2023-10-21] MEDS: DUONEB 0.5 MG/3 MG (3 mL) NEB SCH ×4 (09:13→21:24)
[2023-10-21] MEDS: PULMICORT NEB TX 0.5 MG NEB SCH ×2 (09:13→21:24)
--- NOTE | 2023-10-21 18:25 | PCM.PROG ---
Progress Note - Progress Note for Day of Date of Exam: 10/20/23 - Subjective Subjective: IS A 83 YEAR OLD PATIENT OF . SHE IS CURRENTLY OBSERVATION STATUS FOR TX OF PNEUMONIA, UTI, VOLUME DEPLETION, AND UNCONTROLLED HTN. TODAY, SHE IS LYING IN BED WITH EYES CLOSED ON MORNING ROUNDS. SHE AWAKENS TO VERBAL STIMULI. SHE COMPLAINS OF WEAKNESS THIS MORNING, BUT DENIES OTHER COMPLAINTS. ON EXAMINATION, HEART IS REGULAR IN RATE AND RHYTHM. BILATERAL LUNGS ARE NOTED WITH DIMINISHED LUNG SOUNDS THROUGHOUT. ABDOMEN IS ROUND, SOFT, AND NON-TENDER WITH NORMAL BOWEL SOUNDS NOTED IN ALL QUADRANTS. GOOD RANGE OF MOTION NOTED TO UPPER AND LOWER EXTREMITIES WITH TRACE EDEMA NOTED TO BLE. HER VITALS THIS MORNING ARE: 98.8-72-24-97%-137/67. LABS WERE OBTAINED. WBC 6.5, RBC 3.83, HGB 11.9, HCT 35.9, PLT COUNT 138, SODIUM 136, POTASSIUM 3.2, CHLORIDE 101, BUN 14, CREATINIINE 0.91, GLUCOSE 85, CALCIUM 8.3, MAGNESIUM 1.4, AST 18, ALT 8, ALK PHOS 66, TOTAL PROTEIN 6.1, ALBUMIN 2.6. BLOOD AND URINE CULTURES AND AIT RESPIRATORY PANEL ARE PENDING. CHEST XRAY OBTAINED AND REVEALED: Persistent bibasal opacification. The findings have been described on previous studies to represent a very large hiatal hernia occupying the lower chest. Recent CT has shown this hernia to contain small and large bowel, pancreas and stomach. This effectively obscures lower lobe detail; abnormality in the lower lobes can not be excluded. WE WILL CONTINUE HER IV FLUIDS, ANTIBIOTICS, NEB TX, AND CURRENT PLAN OF CARE TODAY. OTHERWISE, WE WILL FOLLOW-UP WITH AM LABS AND CONTINUE TO MONITOR. TIME SPENT ON CLINICAL ASSESSMENT, REVIEWING LABS AND IMAGING, DECISION MAKING, AND DOCUMENTATION GREATER THAN 45 MINUTES. - Past Medical Family Social History Past Med/Fam/Surg Hx: No changes since H&P Allergies: Allergies celecoxib [From Celebrex] Allergy (Intermediate, Verified 10/18/23 15:33) Reason: Drug allergy cyclobenzaprine [From Flexeril] Allergy (Intermediate, Verified 10/18/23 15:33) Hypotension Sulfa (Sulfonamide Antibiotics) [SULFA] Allergy (Intermediate, Verified 10/18/23 15:33) prednisolone Allergy (Unknown, Verified 10/18/23 15:33) Reason: Drug allergy sulfacetamide Allergy (Unknown, Verified 10/18/23 15:33) - Review of Systems ROS: No change since H&P - Vital Signs and I&O's Vital Signs: Vital Signs Temperature 97.8 F Temperature 97.6 F Pulse Rate [Left] 80 Pulse Rate [Left] 76 Respiratory Rate 20 Respiratory Rate 18 Blood Pressure [Left Arm] 128/81 Blood Pressure [Left Arm] 144/90 O2 Sat by Pulse Oximetry 100 O2 Sat by Pulse Oximetry 99 Intake and Output: Intake & Output 10/19/23 10/20/23 10/21/23 10/22/23 11:59 11:59 11:59 11:59 Intake Total 220 / 220 4755 / 4755 4256 / 4256 120 / 120 Balance 220 / 220 4755 / 4755 4256 / 4256 120 / 120 - Physical Exam Oriented: Normal Eyes: Normal Ear: Normal Nose: Normal Throat: Normal Respiratory: Generalized, Diminished Cardiovascular: Normal : Normal Auscultation: Bowel Sounds: Normal Palpation: Normal Tenderness: Normal Skin: Normal Musculoskeletal: Normal Psychiatric: Normal Mood Description: Calm Affect: Normal Speech Pattern: Clear, Appropriate - Laboratory and Diagnostics Result Diagrams: 10/21/23 05:30 10/21/23 05:30 Labs: 10/19/23 08:14 Blood Blood Culture - Preliminary 10/19/23 08:07 Blood Blood Culture - Preliminary 10/18/23 15:56 Urine,Catheterized Urine Culture - Final Laboratory WBC 11.4 X10^3/uL (3.6-10.0) H 10/21/23 05:30 RBC 4.35 X10^6/uL (3.5-5.4) 10/21/23 05:30 Hgb 13.3 g/dL (12.0-16.0) 10/21/23 05:30 Hct 40.5 % (36.0-47.0) 10/21/23 05:30 MCV 93.0 fL (80.0-100.0) 10/21/23 05:30 MCH 30.5 pg (27.0-34.0) 10/21/23 05:30 MCHC 32.8 g/dL (33.0-35.0) L 10/21/23 05:30 RDW 14.2 % (11.6-16.5) 10/21/23 05:30 Plt Count 172 X10^3/uL (150.0-450.0) 10/21/23 05:30 MPV 7.6 fL (7.4-11.0) 10/21/23 05:30 Neut % (Auto) 81.2 % (42.0-75.0) H 10/21/23 05:30 Lymph % (Auto) 7.8 % (21.0-51.0) L 10/21/23 05:30 [place] % (Auto) 9.8 % (0.0-13.0) 10/21/23 05:30 Eos % (Auto) 0.7 % (0.9-2.9) L 10/21/23 05:30 Baso % (Auto) 0.5 % (0.2-1.0) 10/21/23 05:30 Neut # (Auto) 9.3 x10^3/uL (2.2-4.8) H 10/21/23 05:30 Lymph # (Auto) 0.9 X10^3/uL (1.3-2.9) L 10/21/23 05:30 [place] # (Auto) 1.1 x10^3/uL (0.3-0.8) H 10/21/23 05:30 Eos # (Auto) 0.1 x10^3/uL (0.0-0.2) 10/21/23 05:30 Baso # (Auto) 0.1 X10^3/uL (0.0-0.1) 10/21/23 05:30 Absolute Nucleated RBC 0.1 /100WBC 10/21/23 05:30 Sodium 131 mmol/L (136-145) L 10/21/23 05:30 Corrected Sodium 131 mmol/L (136-145) L 10/21/23 05:30 Potassium 3.4 mmol/L (3.5-5.1) L 10/21/23 05:30 Chloride 94 mmol/L (98-107) L 10/21/23 05:30 Carbon Dioxide 30.0 mmol/L (21-32) 10/21/23 05:30 BUN 10 mg/dL (7-18) 10/21/23 05:30 Creatinine 0.68 mg/dL (0.55-1.02) 10/21/23 05:30 Est GFR (MDRD) Af Amer > 60 (>60) 10/21/23 05:30 Est GFR (MDRD) Non-Af > 60 (>60) 10/21/23 05:30 Glucose 112 mg/dL (65-99) H 10/21/23 05:30 POC Glucose (mg/dL) 120 mg/dL (65-99) H 10/21/23 16:30 Calcium 8.4 mg/dL (8.5-10.1) L 10/21/23 05:30 Corrected Calcium 9.4 mg/dL (8.5-10.1) 10/21/23 05:30 Magnesium 1.8 mg/dL (2.0-2.9) L 10/21/23 05:30 Total Bilirubin 0.60 mg/dL (0.2-1.0) 10/21/23 05:30 AST 17 Units/L (15-37) 10/21/23 05:30 ALT 10 Units/L (12-78) L 10/21/23 05:30 Alkaline Phosphatase 74 Units/L (46-116) 10/21/23 05:30 Troponin I High Sens 18.7 ng/L (4.0-60.0) 10/18/23 15:45 Total Protein 6.6 g/dL (6.4-8.2) 10/21/23 05:30 Albumin 2.7 g/dL (3.4-5.0) L 10/21/23 05:30 Globulin 3.9 g/dL (2.5-4.5) 10/21/23 05:30 Albumin/Globulin Ratio 0.7 Ratio (1.1-2.1) L 10/21/23 05:30 Lipase 29 Units/L (16-77) 10/18/23 15:45 Specimen Type Catherized urine 10/18/23 15:56 Urine Color Dark yellow (YELLOW) 10/18/23 15:56 Urine Appearance Slightly hazy (CLEAR) 10/18/23 15:56 Urine pH 5.0 (5.0 - 8.0) 10/18/23 15:56 Ur Specific [place] 1.025 (1.000-1.030) 10/18/23 15:56 Urine Protein 3+ (NEGATIVE) 10/18/23 15:56 Urine Glucose (UA) Negative (NEGATIVE) 10/18/23 15:56 Urine Ketones 3+ (NEGATIVE) 10/18/23 15:56 Urine Blood 2+ (NEGATIVE) 10/18/23 15:56 Urine Nitrite Negative (NEGATIVE) 10/18/23 15:56 Urine Bilirubin 1+ (NEGATIVE) 10/18/23 15:56 Urine Urobilinogen 2+ (NORMAL) 10/18/23 15:56 Ur Leukocyte Esterase 1+ (NEGATIVE) 10/18/23 15:56 Urine RBC 0-2 /HPF (0-3) 10/18/23 15:56 Urine WBC 5-10 /HPF (0-5) A 10/18/23 15:56 Ur Squamous Epith Cells Few /HPF (NEGATIVE) 10/18/23 15:56 Urine Bacteria 2+ /HPF (NEGATIVE) 10/18/23 15:56 Hyaline Casts Many /LPF (NEGATIVE) 10/18/23 15:56 Urine Mucus Few /HPF (NEGATIVE) 10/18/23 15:56 Ur Culture Indicated? Yes/culture set up 10/18/23 15:56 SARS-CoV-2 (PCR) Negative (NEGATIVE) 10/18/23 15:21 Influenza Type A (PCR) Negative (NEGATIVE) 10/18/23 15:21 Influenza Type B (PCR) Negative (NEGATIVE) 10/18/23 15:21 RSV (PCR) Negative (NEGATIVE) 10/18/23 15:21 - Plan (1) Pneumonia Status: Acute Qualifiers: Pneumonia type: due to unspecified organism Laterality: bilateral Lung location: lower lobe of lung Qualified Code(s): J18.9 - Pneumonia, unspecified organism Plan: IV FLUIDS, IV ANTIBIOTICS, NEB TX, MONITOR LABS AND CHEST XRAY (2) Acute UTI Status: Acute (3) Volume depletion Status: Acute (4) COPD (chronic obstructive pulmonary disease) Status: Chronic Qualifiers: COPD type: chronic bronchitis Plan: CONTINUE HOME MEDS (5) Hiatal hernia with GERD Status: Chronic Plan: CONTINUE HOME MEDS (6) Hyperlipidemia Status: Chronic Qualifiers: Hyperlipidemia type: mixed hyperlipidemia Qualified Code(s): E78.2 - Mixed hyperlipidemia Plan: CONTINUE HOME MEDS (7) Essential (primary) hypertension Status: Chronic Plan: CONTINUE HOME MEDS (8) Hypothyroidism Status: Chronic Qualifiers: Hypothyroidism type: acquired Qualified Code(s): E03.9 - Hypothyroidism, unspecified Plan: CONTINUE HOME MEDS
[2023-10-21] MEDS: ARICEPT TAB 10 MG PO SCH (20:10)
[2023-10-21] MEDS: BUTT CREAM (COMPOUND) TOP PRN (20:11)
[2023-10-21] MEDS: KLONOPIN TAB 0.5 MG PO PRN (20:12)
[2023-10-21] MEDS: NORCO 10/325 TAB PO PRN (20:12)
--- NOTE | 2023-10-21 22:16 | PCM.PROG ---
Progress Note - Progress Note for Day of Date of Exam: 10/21/23 - Subjective Subjective: IS A 83 YEAR OLD PATIENT OF . SHE IS CURRENTLY OBSERVATION STATUS FOR TX OF PNEUMONIA, UTI, VOLUME DEPLETION, AND UNCONTROLLED HTN. TODAY, SHE IS LYING IN BED WITH EYES CLOSED ON MORNING ROUNDS. SHE AWAKENS TO VERBAL STIMULI. SHE COMPLAINS OF WEAKNESS THIS MORNING, BUT DENIES OTHER COMPLAINTS. ON EXAMINATION, HEART IS REGULAR IN RATE AND RHYTHM. BILATERAL LUNGS ARE NOTED WITH DIMINISHED LUNG SOUNDS THROUGHOUT. ABDOMEN IS ROUND, SOFT, AND NON-TENDER WITH NORMAL BOWEL SOUNDS NOTED IN ALL QUADRANTS. GOOD RANGE OF MOTION NOTED TO UPPER AND LOWER EXTREMITIES WITH TRACE EDEMA NOTED TO BLE. HER VITALS THIS MORNING ARE: 98.0-74-20-99%-170/99. SHE IS CURRENTLY UTILZING OXYGEN VIA NASAL CANNULA AT 3 LPM. LABS WERE OBTAINED. WBC 11.4, RBC 4.35, HGB 13.3, HCT 40.5, PLT COUNT 172, SODIUM 131, POTASSIUM 3.4, CHLORIDE 94, BUN 10, CREATININE 0.68, GLUCOSE 112, CALCIUM 8.4, MAGNESIUM 1.8, MAGNESIUM 1.8, TOTAL BILI 0.60, AST 17, ALT 10, ALK PHOS 74, TOTAL PROTEIN 6.6, ALBUMIN 2.7. BLOOD AND URINE CULTURES AND AIT RESPIRATORY PANEL ARE PENDING. CHEST XRAY OBTAINED AND REVEAL ED: There is no change in appearance of heart, lungs are mediastinum. Diffuse opacity continues in both lower lungs consistent with large intrathoracic hernia; underlying parenchymal airspace disease may be present. The upper lobesremain clear. WE WILL CONTINUE HER IV FLUIDS, ANTIBIOTICS, NEB TX, AND CURRENT PLAN OF CARE TODAY. OTHERWISE, WE WILL FOLLOW-UP WITH AM LABS AND CONTINUE TO MONITOR. TIME SPENT ON CLINICAL ASSESSMENT, REVIEWING LABS AND IMAGING, DECISION MAKING, AND DOCUMENTATION GREATER THAN 45 MINUTES. - Past Medical Family Social History Past Med/Fam/Surg Hx: No changes since H&P Allergies: Allergies celecoxib [From Celebrex] Allergy (Intermediate, Verified 10/18/23 15:33) Reason: Drug allergy cyclobenzaprine [From Flexeril] Allergy (Intermediate, Verified 10/18/23 15:33) Hypotension Sulfa (Sulfonamide Antibiotics) [SULFA] Allergy (Intermediate, Verified 10/18/23 15:33) prednisolone Allergy (Unknown, Verified 10/18/23 15:33) Reason: Drug allergy sulfacetamide Allergy (Unknown, Verified 10/18/23 15:33) - Review of Systems ROS: No change since H&P - Vital Signs and I&O's Vital Signs: Vital Signs Temperature 97.8 F Pulse Rate [Left] 80 Pulse Rate 67 Respiratory Rate 20 Respiratory Rate 20 Blood Pressure [Left Arm] 128/81 O2 Sat by Pulse Oximetry 98 O2 Sat by Pulse Oximetry 100 Intake and Output: Intake & Output 10/19/23 10/20/23 10/21/23 10/22/23 11:59 11:59 11:59 11:59 Intake Total 220 / 220 4755 / 4755 4256 / 4256 120 / 120 Balance 220 / 220 4755 / 4755 4256 / 4256 120 / 120 - Physical Exam Oriented: Normal Eyes: Normal Ear: Normal Nose: Normal Throat: Normal Respiratory: Generalized, Diminished Cardiovascular: Normal : Normal Auscultation: Bowel Sounds: Normal Tenderness: Normal Skin: Normal Musculoskeletal: Normal Psychiatric: Normal Mood Description: Calm Affect: Normal Speech Pattern: Clear, Appropriate - Laboratory and Diagnostics Result Diagrams: 10/21/23 05:30 10/21/23 05:30 Labs: 10/19/23 08:14 Blood Blood Culture - Preliminary 10/19/23 08:07 Blood Blood Culture - Preliminary 10/18/23 15:56 Urine,Catheterized Urine Culture - Final Laboratory WBC 11.4 X10^3/uL (3.6-10.0) H 10/21/23 05:30 RBC 4.35 X10^6/uL (3.5-5.4) 10/21/23 05:30 Hgb 13.3 g/dL (12.0-16.0) 10/21/23 05:30 Hct 40.5 % (36.0-47.0) 10/21/23 05:30 MCV 93.0 fL (80.0-100.0) 10/21/23 05:30 MCH 30.5 pg (27.0-34.0) 10/21/23 05:30 MCHC 32.8 g/dL (33.0-35.0) L 10/21/23 05:30 RDW 14.2 % (11.6-16.5) 10/21/23 05:30 Plt Count 172 X10^3/uL (150.0-450.0) 10/21/23 05:30 MPV 7.6 fL (7.4-11.0) 10/21/23 05:30 Neut % (Auto) 81.2 % (42.0-75.0) H 10/21/23 05:30 Lymph % (Auto) 7.8 % (21.0-51.0) L 10/21/23 05:30 Green % (Auto) 9.8 % (0.0-13.0) 10/21/23 05:30 Eos % (Auto) 0.7 % (0.9-2.9) L 10/21/23 05:30 Baso % (Auto) 0.5 % (0.2-1.0) 10/21/23 05:30 Neut # (Auto) 9.3 x10^3/uL (2.2-4.8) H 10/21/23 05:30 Lymph # (Auto) 0.9 X10^3/uL (1.3-2.9) L 10/21/23 05:30 Green # (Auto) 1.1 x10^3/uL (0.3-0.8) H 10/21/23 05:30 Eos # (Auto) 0.1 x10^3/uL (0.0-0.2) 10/21/23 05:30 Baso # (Auto) 0.1 X10^3/uL (0.0-0.1) 10/21/23 05:30 Absolute Nucleated RBC 0.1 /100WBC 10/21/23 05:30 Sodium 131 mmol/L (136-145) L 10/21/23 05:30 Corrected Sodium 131 mmol/L (136-145) L 10/21/23 05:30 Potassium 3.4 mmol/L (3.5-5.1) L 10/21/23 05:30 Chloride 94 mmol/L (98-107) L 10/21/23 05:30 Carbon Dioxide 30.0 mmol/L (21-32) 10/21/23 05:30 BUN 10 mg/dL (7-18) 10/21/23 05:30 Creatinine 0.68 mg/dL (0.55-1.02) 10/21/23 05:30 Est GFR (MDRD) Af Amer > 60 (>60) 10/21/23 05:30 Est GFR (MDRD) Non-Af > 60 (>60) 10/21/23 05:30 Glucose 112 mg/dL (65-99) H 10/21/23 05:30 POC Glucose (mg/dL) 123 mg/dL (65-99) H 10/21/23 19:27 Calcium 8.4 mg/dL (8.5-10.1) L 10/21/23 05:30 Corrected Calcium 9.4 mg/dL (8.5-10.1) 10/21/23 05:30 Magnesium 1.8 mg/dL (2.0-2.9) L 10/21/23 05:30 Total Bilirubin 0.60 mg/dL (0.2-1.0) 10/21/23 05:30 AST 17 Units/L (15-37) 10/21/23 05:30 ALT 10 Units/L (12-78) L 10/21/23 05:30 Alkaline Phosphatase 74 Units/L (46-116) 10/21/23 05:30 Troponin I High Sens 18.7 ng/L (4.0-60.0) 10/18/23 15:45 Total Protein 6.6 g/dL (6.4-8.2) 10/21/23 05:30 Albumin 2.7 g/dL (3.4-5.0) L 10/21/23 05:30 Globulin 3.9 g/dL (2.5-4.5) 10/21/23 05:30 Albumin/Globulin Ratio 0.7 Ratio (1.1-2.1) L 10/21/23 05:30 Lipase 29 Units/L (16-77) 10/18/23 15:45 Specimen Type Catherized urine 10/18/23 15:56 Urine Color Dark yellow (YELLOW) 10/18/23 15:56 Urine Appearance Slightly hazy (CLEAR) 10/18/23 15:56 Urine pH 5.0 (5.0 - 8.0) 10/18/23 15:56 Ur Specific [place] 1.025 (1.000-1.030) 10/18/23 15:56 Urine Protein 3+ (NEGATIVE) 10/18/23 15:56 Urine Glucose (UA) Negative (NEGATIVE) 10/18/23 15:56 Urine Ketones 3+ (NEGATIVE) 10/18/23 15:56 Urine Blood 2+ (NEGATIVE) 10/18/23 15:56 Urine Nitrite Negative (NEGATIVE) 10/18/23 15:56 Urine Bilirubin 1+ (NEGATIVE) 10/18/23 15:56 Urine Urobilinogen 2+ (NORMAL) 10/18/23 15:56 Ur Leukocyte Esterase 1+ (NEGATIVE) 10/18/23 15:56 Urine RBC 0-2 /HPF (0-3) 10/18/23 15:56 Urine WBC 5-10 /HPF (0-5) A 10/18/23 15:56 Ur Squamous Epith Cells Few /HPF (NEGATIVE) 10/18/23 15:56 Urine Bacteria 2+ /HPF (NEGATIVE) 10/18/23 15:56 Hyaline Casts Many /LPF (NEGATIVE) 10/18/23 15:56 Urine Mucus Few /HPF (NEGATIVE) 10/18/23 15:56 Ur Culture Indicated? Yes/culture set up 10/18/23 15:56 SARS-CoV-2 (PCR) Negative (NEGATIVE) 10/18/23 15:21 Influenza Type A (PCR) Negative (NEGATIVE) 10/18/23 15:21 Influenza Type B (PCR) Negative (NEGATIVE) 10/18/23 15:21 RSV (PCR) Negative (NEGATIVE) 10/18/23 15:21 - Plan (1) Pneumonia Status: Acute Qualifiers: Pneumonia type: due to unspecified organism Laterality: bilateral Lung location: lower lobe of lung Qualified Code(s): J18.9 - Pneumonia, unspecified organism Plan: IV FLUIDS, IV ANTIBIOTICS, NEB TX, MONITOR LABS AND CHEST XRAY (2) Acute UTI Status: Acute (3) Volume depletion Status: Acute (4) COPD (chronic obstructive pulmonary disease) Status: Chronic Qualifiers: COPD type: chronic bronchitis Plan: CONTINUE HOME MEDS (5) Hiatal hernia with GERD Status: Chronic Plan: CONTINUE HOME MEDS (6) Hyperlipidemia Status: Chronic Qualifiers: Hyperlipidemia type: mixed hyperlipidemia Qualified Code(s): E78.2 - Mixed hyperlipidemia Plan: CONTINUE HOME MEDS (7) Essential (primary) hypertension Status: Chronic Plan: CONTINUE HOME MEDS (8) Hypothyroidism Status: Chronic Qualifiers: Hypothyroidism type: acquired Qualified Code(s): E03.9 - Hypothyroidism, unspecified Plan: CONTINUE HOME MEDS
[2023-10-22] MEDS: NS + KCL 20 MEQ/L 1,000 ML with MAGNESIUM SULFATE 50% INJ VIAL 1 G IV SCH ×4 (00:08→09:06)
[2023-10-22] MEDS: BUTT CREAM (COMPOUND) TOP PRN (00:09)
[2023-10-22] MEDS: ZOFRAN INJ 4 MG VIAL IVP SCH ×4 (02:27→20:49)
[2023-10-22 06:44] LABS: BASOPHILS # (AUTO) 0.1 X10^3/uL (0.0-0.1); BASOPHILS % (AUTO) 0.5 % (0.2-1.0); EOSINOPHILS # (AUTO) 0.2 x10^3/uL (0.0-0.2); EOSINOPHILS % (AUTO) 1.3 % (0.9-2.9); HEMATOCRIT 39.9 % (36.0-47.0); HEMOGLOBIN 13.3 g/dL (12.0-16.0); LYMPHOCYTES # (AUTO) 1.1 X10^3/uL (1.3-2.9); LYMPHOCYTES % (AUTO) 9.5 % (21.0-51.0); MEAN CORPUSCULAR HEMOGLOBIN 30.7 pg (27.0-34.0); MEAN CORPUSCULAR HGB CONC 33.3 g/dL (33.0-35.0); MEAN CORPUSCULAR VOLUME 92.2 fL (80.0-100.0); MEAN PLATELET VOLUME 8.1 fL (7.4-11.0); MONOCYTES # (AUTO) 1.3 x10^3/uL (0.3-0.8); NEUTROPHILS # (AUTO) 9.3 x10^3/uL (2.2-4.8); NEUTROPHILS % (AUTO) 77.7 % (42.0-75.0); PLATELET COUNT 165 X10^3/uL (150.0-450.0); RED BLOOD COUNT 4.32 X10^6/uL (3.5-5.4); RED CELL DISTRIBUTION WIDTH 13.8 % (11.6-16.5); WHITE BLOOD COUNT 11.9 X10^3/uL (3.6-10.0)
[2023-10-22 07:31] LABS: ALANINE AMINOTRANSFERASE 9 Units/L (12-78); ALBUMIN 2.3 g/dL (3.4-5.0); ALKALINE PHOSPHATASE 70 Units/L (46-116); ASPARTATE AMINO TRANSFERASE 14 Units/L (15-37); BLOOD UREA NITROGEN 11 mg/dL (7-18); CALCIUM 8.2 mg/dL (8.5-10.1); CARBON DIOXIDE 26.6 mmol/L (21-32); CHLORIDE 95 mmol/L (98-107); COR CA(FOR HYPOALB) 9.6 mg/dL (8.5-10.1); CREATININE 0.69 mg/dL (0.55-1.02); GLUCOSE 101 mg/dL (65-99); MAGNESIUM 2.3 mg/dL (2.0-2.9); POTASSIUM 4.1 mmol/L (3.5-5.1); SODIUM 127 mmol/L (136-145); eGFR NON BLACK RACES > 60 (>60)
[2023-10-22] MEDS: NORCO 10/325 TAB PO PRN (08:16)
[2023-10-22] MEDS: NORVASC TAB 5 MG PO SCH (08:17)
[2023-10-22] MEDS: COREG TAB 12.5 MG PO SCH ×2 (08:17→20:44)
[2023-10-22] MEDS: MICARDIS PO SCH (08:17)
[2023-10-22] MEDS: NAMENDA TAB 10 MG PO SCH (08:17)
[2023-10-22] MEDS: DITROPAN TAB 5 MG PO SCH (08:17)
[2023-10-22] MEDS: DALIRESP PO SCH (08:17)
[2023-10-22] MEDS: SYNTHROID 100 mcg TAB PO SCH (08:17)
[2023-10-22] MEDS: NEURONTIN CAP 100 MG PO SCH ×4 (08:17→20:44)
[2023-10-22] MEDS: CELEXA PO SCH (08:17)
[2023-10-22] MEDS: PEPCID 20 MG VIAL 20 MG in NS 50 ML IV 50 ML IV SCH ×2 (08:17→20:49)
[2023-10-22] MEDS: LOVENOX INJ 30 MG SYR SC SCH (08:17)
[2023-10-22] MEDS: VIBRAMYCIN 100 MG in D5W 250 ML IV 250 ML IV SCH ×2 (08:18→09:45)
[2023-10-22] MEDS: ROCEPHIN VIAL 1 GRAM 1 G in NS 100 ML IV 100 ML IV SCH ×2 (08:18→09:44)
[2023-10-22] MEDS: PROTONIX INJ 40 MG VIAL IVP SCH (08:18)
[2023-10-22] MEDS: DUONEB 0.5 MG/3 MG (3 mL) NEB SCH ×4 (09:32→20:15)
[2023-10-22] MEDS: PULMICORT NEB TX 0.5 MG NEB SCH ×2 (09:32→20:15)
[2023-10-22] MEDS ORDERED: CORTEF ONE ×2 (09:51→19:09)
[2023-10-22] MEDS: CORTEF PO SCH ×2 (09:54→20:43)
[2023-10-22] MEDS: LEVAQUIN PREMIX IV 500 MG 500 MG/100 ML BAG IV SCH (09:55)
[2023-10-22] MEDS ORDERED: SODIUM CHLORIDE 3% IV ONE (10:00)
[2023-10-22] MEDS ORDERED: HYPERTONIC IV ONE (10:00)
[2023-10-22] MEDS: NS + KCL 20 MEQ/L 1,000 ML IV SCH ×2 (10:07→22:35)
--- NOTE | 2023-10-22 18:10 | RAD ---
EXAM:CHEST, 1 VIEWHISTORY:CENTRAL LINE PLACEMENT;COMPARISON:10/21/2023.TECHNIQUE: r.br.br.br.br subclavian catheter has been placed and the tip is in the superior vena cava near the right atrium. There is a stable appearance of the diaphragmatic hernia. The lungs are grossly clear.IMPRESSION:Successful catheter placement.THIS IS AN ELECTRONICALLY VERIFIED FINAL REPORT10/22/2023 6:06 PM - Electronically signed by Rip Canas MD
[2023-10-22] MEDS: ARICEPT TAB 10 MG PO SCH (20:44)
[2023-10-23] MEDS: NORCO 10/325 TAB PO PRN (00:40)
[2023-10-23] MEDS: ZOFRAN INJ 4 MG VIAL IVP SCH ×4 (03:00→22:25)
[2023-10-23] MEDS: NS + KCL 20 MEQ/L 1,000 ML IV SCH ×4 (03:01→22:25)
[2023-10-23 06:31] LABS: BASOPHILS % (AUTO) 0.3 % (0.2-1.0); EOSINOPHILS # (AUTO) 0.1 x10^3/uL (0.0-0.2); EOSINOPHILS % (AUTO) 1.3 % (0.9-2.9); HEMATOCRIT 34.8 % (36.0-47.0); HEMOGLOBIN 11.6 g/dL (12.0-16.0); LYMPHOCYTES # (AUTO) 0.9 X10^3/uL (1.3-2.9); LYMPHOCYTES % (AUTO) 12.8 % (21.0-51.0); MEAN CORPUSCULAR HGB CONC 33.3 g/dL (33.0-35.0); MEAN CORPUSCULAR VOLUME 93.3 fL (80.0-100.0); MEAN PLATELET VOLUME 8.1 fL (7.4-11.0); MONOCYTES # (AUTO) 1.1 x10^3/uL (0.3-0.8); MONOCYTES % (AUTO) 14.8 % (0.0-13.0); NEUTROPHILS # (AUTO) 5.1 x10^3/uL (2.2-4.8); NEUTROPHILS % (AUTO) 70.8 % (42.0-75.0); PLATELET COUNT 119 X10^3/uL (150.0-450.0); RED BLOOD COUNT 3.72 X10^6/uL (3.5-5.4); RED CELL DISTRIBUTION WIDTH 14.2 % (11.6-16.5); WHITE BLOOD COUNT 7.2 X10^3/uL (3.6-10.0)
[2023-10-23 07:51] LABS: ALANINE AMINOTRANSFERASE 7 Units/L (12-78); ALKALINE PHOSPHATASE 61 Units/L (46-116); ASPARTATE AMINO TRANSFERASE 12 Units/L (15-37); BLOOD UREA NITROGEN 13 mg/dL (7-18); CALCIUM 8.5 mg/dL (8.5-10.1); CARBON DIOXIDE 23.6 mmol/L (21-32); CHLORIDE 102 mmol/L (98-107); COR CA(FOR HYPOALB) 10.1 mg/dL (8.5-10.1); CREATININE 0.76 mg/dL (0.55-1.02); GLUCOSE 83 mg/dL (65-99); POTASSIUM 4.6 mmol/L (3.5-5.1); SODIUM 133 mmol/L (136-145); TOTAL PROTEIN 5.4 g/dL (6.4-8.2); eGFR NON BLACK RACES > 60 (>60)
[2023-10-23] MEDS ORDERED: CORTEF ONE ×2 (08:11→19:18)
[2023-10-23] MEDS: DUONEB 0.5 MG/3 MG (3 mL) NEB SCH ×3 (08:54→20:16)
[2023-10-23] MEDS: PULMICORT NEB TX 0.5 MG NEB SCH ×2 (08:55→20:16)
[2023-10-23] MEDS: NORVASC TAB 5 MG PO SCH (09:54)
[2023-10-23] MEDS: DALIRESP PO SCH (09:54)
[2023-10-23] MEDS: COREG TAB 12.5 MG PO SCH ×2 (09:54→20:50)
[2023-10-23] MEDS: DITROPAN TAB 5 MG PO SCH (09:54)
[2023-10-23] MEDS: MICARDIS PO SCH (09:54)
[2023-10-23] MEDS: NEURONTIN CAP 100 MG PO SCH ×4 (09:54→20:50)
[2023-10-23] MEDS: CORTEF PO SCH ×2 (09:55→20:48)
[2023-10-23] MEDS: NAMENDA TAB 10 MG PO SCH (09:55)
[2023-10-23] MEDS: SYNTHROID 100 mcg TAB PO SCH (09:55)
[2023-10-23] MEDS: LOVENOX INJ 40 MG SYR SC SCH (09:56)
[2023-10-23] MEDS: PROTONIX INJ 40 MG VIAL IVP SCH (09:56)
[2023-10-23] MEDS: LEVAQUIN PREMIX IV 500 MG 500 MG/100 ML BAG IV SCH (09:57)
[2023-10-23] MEDS: CELEXA PO SCH (09:59)
[2023-10-23] MEDS: HYPERTONIC IV NR ×2 (11:18→15:45)
[2023-10-23] MEDS: SODIUM CHLORIDE 3% IV NR ×2 (11:18→15:45)
[2023-10-23] MEDS: PEPCID 20 MG VIAL 20 MG in NS 50 ML IV 50 ML IV SCH ×2 (11:19→20:50)
[2023-10-23] MEDS: ARICEPT TAB 10 MG PO SCH (20:50)
[2023-10-24] MEDS: NS + KCL 20 MEQ/L 1,000 ML IV SCH ×3 (02:54→21:47)
[2023-10-24] MEDS: ZOFRAN INJ 4 MG VIAL IVP SCH ×3 (03:28→16:14)
[2023-10-24 06:45] LABS: BASOPHILS % (AUTO) 0.5 % (0.2-1.0); EOSINOPHILS # (AUTO) 0.1 x10^3/uL (0.0-0.2); EOSINOPHILS % (AUTO) 1.3 % (0.9-2.9); HEMATOCRIT 32.9 % (36.0-47.0); LYMPHOCYTES % (AUTO) 17.6 % (21.0-51.0); MEAN CORPUSCULAR HEMOGLOBIN 31.2 pg (27.0-34.0); MEAN CORPUSCULAR HGB CONC 33.6 g/dL (33.0-35.0); MEAN CORPUSCULAR VOLUME 92.8 fL (80.0-100.0); MEAN PLATELET VOLUME 8.2 fL (7.4-11.0); MONOCYTES # (AUTO) 0.6 x10^3/uL (0.3-0.8); MONOCYTES % (AUTO) 10.5 % (0.0-13.0); NEUTROPHILS % (AUTO) 70.1 % (42.0-75.0); PLATELET COUNT 147 X10^3/uL (150.0-450.0); RED BLOOD COUNT 3.54 X10^6/uL (3.5-5.4); RED CELL DISTRIBUTION WIDTH 13.9 % (11.6-16.5); WHITE BLOOD COUNT 5.7 X10^3/uL (3.6-10.0)
[2023-10-24 07:06] LABS: ALANINE AMINOTRANSFERASE 8 Units/L (12-78); ALBUMIN 2.1 g/dL (3.4-5.0); ALKALINE PHOSPHATASE 58 Units/L (46-116); ASPARTATE AMINO TRANSFERASE 9 Units/L (15-37); BLOOD UREA NITROGEN 8 mg/dL (7-18); CALCIUM 8.6 mg/dL (8.5-10.1); CARBON DIOXIDE 27.1 mmol/L (21-32); CHLORIDE 101 mmol/L (98-107); COR CA(FOR HYPOALB) 10.1 mg/dL (8.5-10.1); CREATININE 0.65 mg/dL (0.55-1.02); GLUCOSE 75 mg/dL (65-99); POTASSIUM 3.8 mmol/L (3.5-5.1); SODIUM 134 mmol/L (136-145); TOTAL PROTEIN 5.6 g/dL (6.4-8.2); eGFR NON BLACK RACES > 60 (>60)
[2023-10-24] MEDS ORDERED: CONSULT PHARMACY - POTASSIUM & MAGNESIUM XX SCH (08:00)
[2023-10-24] MEDS ORDERED: K-DUR TAB 20 MEQ PO ONE (09:00)
[2023-10-24] MEDS: DUONEB 0.5 MG/3 MG (3 mL) NEB SCH ×4 (09:03→20:17)
[2023-10-24] MEDS: PULMICORT NEB TX 0.5 MG NEB SCH ×2 (09:04→20:17)
[2023-10-24] MEDS ORDERED: CORTEF ONE ×2 (09:15→19:50)
[2023-10-24] MEDS: LEVAQUIN PREMIX IV 500 MG 500 MG/100 ML BAG IV SCH (09:40)
[2023-10-24] MEDS: PEPCID 20 MG VIAL 20 MG in NS 50 ML IV 50 ML IV SCH ×2 (09:41→20:06)
[2023-10-24] MEDS: PROTONIX INJ 40 MG VIAL IVP SCH (09:41)
[2023-10-24] MEDS: DALIRESP PO SCH (11:15)
[2023-10-24] MEDS: DITROPAN TAB 5 MG PO SCH (11:15)
[2023-10-24] MEDS: CORTEF PO SCH ×2 (11:15→20:02)
[2023-10-24] MEDS: CELEXA PO SCH (11:15)
[2023-10-24] MEDS: COREG TAB 12.5 MG PO SCH ×2 (11:15→20:00)
[2023-10-24] MEDS: LOVENOX INJ 40 MG SYR SC SCH (11:16)
[2023-10-24] MEDS: NAMENDA TAB 10 MG PO SCH (11:16)
[2023-10-24] MEDS: MICARDIS PO SCH (11:16)
[2023-10-24] MEDS: SYNTHROID 100 mcg TAB PO SCH (11:17)
[2023-10-24] MEDS: NORVASC TAB 5 MG PO SCH (11:17)
[2023-10-24] MEDS: NEURONTIN CAP 100 MG PO SCH ×4 (11:17→20:02)
[2023-10-24] MEDS ORDERED: VANCOMYCIN HCL 250 MG CAP PO ONE (14:50)
[2023-10-24] MEDS: VANCOMYCIN HCL 250 MG CAP PO SCH ×2 (15:01→20:05)
[2023-10-24] MEDS: ARICEPT TAB 10 MG PO SCH (20:01)
[2023-10-25] MEDS: VANCOMYCIN HCL 250 MG CAP PO SCH ×3 (02:18→14:00)
[2023-10-25 06:21] LABS: BASOPHILS % (AUTO) 0.7 % (0.2-1.0); EOSINOPHILS # (AUTO) 0.1 x10^3/uL (0.0-0.2); EOSINOPHILS % (AUTO) 2.6 % (0.9-2.9); HEMATOCRIT 32.2 % (36.0-47.0); HEMOGLOBIN 10.8 g/dL (12.0-16.0); LYMPHOCYTES # (AUTO) 1.2 X10^3/uL (1.3-2.9); LYMPHOCYTES % (AUTO) 20.7 % (21.0-51.0); MEAN CORPUSCULAR HEMOGLOBIN 31.3 pg (27.0-34.0); MEAN CORPUSCULAR HGB CONC 33.6 g/dL (33.0-35.0); MEAN CORPUSCULAR VOLUME 93.2 fL (80.0-100.0); MEAN PLATELET VOLUME 8.2 fL (7.4-11.0); MONOCYTES # (AUTO) 0.6 x10^3/uL (0.3-0.8); MONOCYTES % (AUTO) 11.3 % (0.0-13.0); NEUTROPHILS # (AUTO) 3.7 x10^3/uL (2.2-4.8); NEUTROPHILS % (AUTO) 64.7 % (42.0-75.0); PLATELET COUNT 160 X10^3/uL (150.0-450.0); RED BLOOD COUNT 3.45 X10^6/uL (3.5-5.4); RED CELL DISTRIBUTION WIDTH 14.3 % (11.6-16.5); WHITE BLOOD COUNT 5.7 X10^3/uL (3.6-10.0)
[2023-10-25 06:29] LABS: ALANINE AMINOTRANSFERASE 8 Units/L (12-78); ALBUMIN 2.1 g/dL (3.4-5.0); ALKALINE PHOSPHATASE 54 Units/L (46-116); ASPARTATE AMINO TRANSFERASE 9 Units/L (15-37); BLOOD UREA NITROGEN 7 mg/dL (7-18); CALCIUM 8.6 mg/dL (8.5-10.1); CARBON DIOXIDE 27.4 mmol/L (21-32); CHLORIDE 102 mmol/L (98-107); COR CA(FOR HYPOALB) 10.1 mg/dL (8.5-10.1); CREATININE 0.71 mg/dL (0.55-1.02); GLUCOSE 72 mg/dL (65-99); POTASSIUM 3.8 mmol/L (3.5-5.1); SODIUM 135 mmol/L (136-145); TOTAL PROTEIN 5.4 g/dL (6.4-8.2); eGFR NON BLACK RACES > 60 (>60)
[2023-10-25] MEDS ORDERED: CONSULT PHARMACY - POTASSIUM & MAGNESIUM XX SCH ×2 (07:00→11:00)
[2023-10-25] MEDS ORDERED: CORTEF ONE (08:02)
[2023-10-25 08:38] VITALS: BP 122/94; PULSE 71; TEMP 98.3; O2SAT 99
[2023-10-25] MEDS: DALIRESP PO SCH (08:57)
[2023-10-25] MEDS: MICARDIS PO SCH (08:57)
[2023-10-25] MEDS: NEURONTIN CAP 100 MG PO SCH ×2 (08:57→14:00)
[2023-10-25] MEDS: NAMENDA TAB 10 MG PO SCH (08:58)
[2023-10-25] MEDS: CELEXA PO SCH (08:58)
[2023-10-25] MEDS: CORTEF PO SCH (08:59)
[2023-10-25] MEDS: NORVASC TAB 5 MG PO SCH (08:59)
[2023-10-25] MEDS: COREG TAB 12.5 MG PO SCH (08:59)
[2023-10-25] MEDS: SYNTHROID 100 mcg TAB PO SCH (08:59)
[2023-10-25] MEDS: DITROPAN TAB 5 MG PO SCH (08:59)
[2023-10-25] MEDS: LOVENOX INJ 40 MG SYR SC SCH (09:00)
[2023-10-25] MEDS: DUONEB 0.5 MG/3 MG (3 mL) NEB SCH (09:00)
[2023-10-25] MEDS ORDERED: K-DUR TAB 20 MEQ PO SCH (09:00)
[2023-10-25] MEDS: PULMICORT NEB TX 0.5 MG NEB SCH (09:01)
[2023-10-25] MEDS: PEPCID 20 MG VIAL 20 MG in NS 50 ML IV 50 ML IV SCH (09:50)
[2023-10-25] MEDS: PROTONIX INJ 40 MG VIAL IVP SCH (09:50)
[2023-10-25] MEDS: NS + KCL 20 MEQ/L 1,000 ML IV SCH (10:17)
[2023-10-25] MEDS ORDERED: NS + KCL 20 MEQ/L 1,000 ML with MAGNESIUM SULFATE 50% INJ VIAL 1 G IV SCH ×2 (11:00)
[2023-10-25] MEDS: MAG-OX TAB PO SCH ×2 (12:13→14:01)
[2023-10-25] MEDS: NORCO 10/325 TAB PO PRN (14:15)
[2023-10-25] MEDS ORDERED: NORCO 10/325 TAB ONE (14:18)
[2023-10-25 14:40] VITALS: RESP 22
== END 2023-10-25 14:00 ==
LOC: MED/SURG 15:16 → ER 15:16 → MED/SURG 21:14
PROVIDERS: ADMIT Obstetrics & Gynecology Obstetrics; ATTEND Obstetrics & Gynecology Obstetrics
DX: J18.8 Other pneumonia, unspecified organism; R26.9 Unspecified abnormalities of gait and mobility; R53.1 Weakness; E11.65 Type 2 diabetes mellitus with hyperglycemia; R06.02 Shortness of breath; R00.0 Tachycardia, unspecified; K57.30 Diverticulosis of large intestine without perforation or abscess without bleeding; I10 Essential (primary) hypertension; E87.1 Hypo-osmolality and hyponatremia; E83.2 Disorders of zinc metabolism; E03.8 Other specified hypothyroidism; K44.9 Diaphragmatic hernia without obstruction or gangrene; N39.0 Urinary tract infection, site not specified; Z20.822 Contact with and (suspected) exposure to COVID-19; I87.2 Venous insufficiency (chronic) (peripheral); J44.9 Chronic obstructive pulmonary disease, unspecified; E86.0 Dehydration; A04.72 Enterocolitis due to Clostridium difficile, not specified as recurrent; K21.9 Gastro-esophageal reflux disease without esophagitis

== ENCOUNTER 2024-11-26 16:16 | Observation (INO) ==
[2024-11-26] MEDS: DUONEB 0.5 MG/3 MG (3 mL) NEB ONE (16:27)
[2024-11-26 16:29] VITALS: BMI 27.2
[2024-11-26] MEDS: DECADRON INJ IVP ONE ×2 (16:35→16:42)
--- NOTE | 2024-11-26 16:36 | EKG ---
Test Reason : Dyspnea Blood Pressure : */* mmHG Vent. Rate : 81 BPM Atrial Rate : 81 BPM P-R Int : 138 ms QRS Dur : 88 ms QT Int : 370 ms P-R-T Axes : 63 69 81 degrees QTc Int : 429 ms Normal sinus rhythm Nonspecific T wave abnormality Abnormal ECG When compared with ECG of 19-OCT-2023 09:21, premature ventricular complexes are no longer present Nonspecific T wave abnormality no longer evident in Inferior leads QT has lengthened Confirmed by Carlos Valverde MD ([id number]) on 11/27/2024 5:44:27 AM Referred By: Confirmed By: Carlos Valverde MD
[2024-11-26 16:47] LABS: BASOPHILS % (AUTO) 0.7 % (0.2-1.0); EOSINOPHILS # (AUTO) 0.4 x10^3/uL (0.0-0.2); EOSINOPHILS % (AUTO) 6.3 % (0.9-2.9); HEMATOCRIT 38.1 % (36.0-47.0); HEMOGLOBIN 12.7 g/dL (12.0-16.0); LYMPHOCYTES # (AUTO) 1.1 X10^3/uL (1.3-2.9); LYMPHOCYTES % (AUTO) 17.2 % (21.0-51.0); MEAN CORPUSCULAR HEMOGLOBIN 32.6 pg (27.0-34.0); MEAN CORPUSCULAR HGB CONC 33.4 g/dL (33.0-35.0); MEAN CORPUSCULAR VOLUME 97.4 fL (80.0-100.0); MEAN PLATELET VOLUME 7.3 fL (7.4-11.0); MONOCYTES # (AUTO) 0.6 x10^3/uL (0.3-0.8); MONOCYTES % (AUTO) 9.3 % (0.0-13.0); NEUTROPHILS # (AUTO) 4.1 x10^3/uL (2.2-4.8); NEUTROPHILS % (AUTO) 66.5 % (42.0-75.0); PLATELET COUNT 126 X10^3/uL (150.0-450.0); RED BLOOD COUNT 3.91 X10^6/uL (3.5-5.4); WHITE BLOOD COUNT 6.1 X10^3/uL (3.6-10.0)
[2024-11-26 17:01] LABS: ALBUMIN 3.6 g/dL (3.4-5.0); ALKALINE PHOSPHATASE 71 Units/L (46-116); ASPARTATE AMINO TRANSFERASE 21 Units/L (15-37); BLOOD UREA NITROGEN 16 mg/dL (7-18); CHLORIDE 102 mmol/L (98-107); COR NA(FOR HYPERGLY) 140 mmol/L (136-145); CREATININE 1.06 mg/dL (0.55-1.02); GLUCOSE 113 mg/dL (65-99); MAGNESIUM 1.7 mg/dL (2.0-2.9); POTASSIUM 4.3 mmol/L (3.5-5.1); SODIUM 140 mmol/L (136-145); TOTAL PROTEIN 7.1 g/dL (6.4-8.2); eGFR NON BLACK RACES 53 (>60)
--- NOTE | 2024-11-26 17:02 | RAD ---
EXAMINATION:CHEST, 1 VIEWHISTORY:c/o increasing SOB today, audible wheezing. Pt had 3 prescribed duoneb treatments today that helped symptoms minimally. Dr. Lopez was notified and advised to send pt to ER for evaluation; .COMPARISON STUDY:06/19/2024TECHNIQUE:One viewFINDINGS:The heart size is normal. There is a large diaphragmatic hernia containing bowel similar to the prior study. Poor inspiration. No acute infiltrates. No pneumothorax. Hilar and mediastinal structures and bony structures are unremarkable and unchanged. EKG leads overlie the chest.IMPRESSION:No acute findings.Large diaphragmatic herniaTHIS IS AN ELECTRONICALLY VERIFIED FINAL REPORT11/26/2024 4:59 PM - Electronically signed by Gilmar Bay MD
[2024-11-26 17:31] LABS: ALANINE AMINOTRANSFERASE 14 Units/L (12-78)
--- NOTE | 2024-11-26 18:41 | DR.SOBA ---
HPI Time Seen Time Seen by Provider: 11/26/24 16:22 Primary Care Physician Primary Care Physician: Jessica Complaints Chief Complaint Doctors Comments: 84 yo F, hx of COPD, on 4L home O2, comes in from assisted secondary to increasing dyspnea, wheezing and non-prod cough. Denies other complaints. Chief Complaint:: Report called per [facility] charge nurse, Rosita. She reports pt c/o increasing SOB today, audible wheezing. Pt had 3 prescribed duoneb treatments today that helped symptoms minimally. Dr. Ace was notified and advise d to send pt to ER for evaluation COVID-19 Coronavirus risk:travel/contact w/high risk person: Yes Has patient experienced Coronavirus symptoms: Yes Coronavirus symptoms experienced: Coughing and Shortness of Breath Source History Provided: Patient and Longterm Mode of Arrival Mode of Arrival: Wheelchair Timing Onset of Chief Complaint: 11/26/24 PMH PMH Past Medical History: Yes Past Medical History: Anemia, Anxiety, Arthritis, COPD, Dementia, Depression, Dyslipidemia, Migraines, GERD, Headaches, Hypertension, Hypothyroidism and Sleep Apnea Past Medical History Comment: chronic respiratory failure w/ hypoxia, osteoporosis, cervical and lumbar radiculopathy, fibromyalgia, sleep apnea, polyneuropathy, diverticulosis, OAB Past Surgical History: Yes Surgical History: Appendectomy, , Cholecystectomy, Hysterectomy, Ortho Surgery and Tonsillectomy Family History History of Family Medical Conditions: Yes Family Medical History: Cancer and Heart Failure Social History Does any household member use tobacco: No Alcohol Use: None Do you use any recreational Drugs:: No Lives Where: Longterm Travel Risk Coronavirus risk:travel/contact w/high risk person: Yes Has patient experienced Coronavirus symptoms: Yes Coronavirus symptoms experienced: Coughing and Shortness of Breath Infectious screening Have you traveled outside the country in the last 6 months?: No Isolation: Droplet ROS Review of Systems Constitutional: negative Fever Respiratoy: Dry Cough, Short of Breath and Wheezing Cardiovascular: negative Chest Pain All Other Systems: Reviewed and Negative PE Vital Signs Vitals: Vital Signs Temperature 98.3 F Pulse Rate 66 Pulse Rate 66 Pulse Rate 67 Pulse Rate 66 Pulse Rate 70 Pulse Rate 72 Pulse Rate 82 Pulse Rate 75 Pulse Rate 92 Pulse Rate 91 Pulse Rate 85 Pulse Rate 86 Pulse Rate 93 Pulse Rate 102 Respiratory Rate 19 Respiratory Rate 22 Respiratory Rate 24 Respiratory Rate 18 Respiratory Rate 32 Respiratory Rate 29 Respiratory Rate 37 Respiratory Rate 23 Respiratory Rate 43 Respiratory Rate 29 Respiratory Rate 42 Respiratory Rate 35 Respiratory Rate 34 Blood Pressure 140/68 Blood Pressure 127/60 Blood Pressure 110/66 Blood Pressure 105/59 Blood Pressure 140/83 Blood Pressure 168/91 O2 Sat by Pulse Oximetry 100 O2 Sat by Pulse Oximetry 100 O2 Sat by Pulse Oximetry 100 O2 Sat by Pulse Oximetry 100 O2 Sat by Pulse Oximetry 100 O2 Sat by Pulse Oximetry 100 O2 Sat by Pulse Oximetry 99 O2 Sat by Pulse Oximetry 99 O2 Sat by Pulse Oximetry 98 O2 Sat by Pulse Oximetry 100 O2 Sat by Pulse Oximetry 100 O2 Sat by Pulse Oximetry 98 O2 Sat by Pulse Oximetry 95 O2 Sat by Pulse Oximetry 94 General Limitations: No Limitations General Appearance: Alert and In No Apparent Distress Head Head Exam: Normal Inspection Eyes Eye exam: Normal Appearance ENT ENT Exam: Normal Exam Neck Neck Exam: Normal Inspection Chest Chest Inspection: Normal Inspection Respiratory Respiratory Exam: Prolonged Expiratory Phase Respiratory Exam: Bilateral: Wheezing Cardiovascular Cardiovascular Exam: Regular Rate and Normal Rhythm Abdominal Exam Abdominal Exam: Normal Inspection, Normal Bowel Sounds and Soft Extremities Extremities Exam: Normal Inspection Back Back Exam: Normal Inspection Neurologic Neurological Exam: Alert and Oriented X3 Psychiatric Psychiatric Exam: Normal Affect and Normal Mood Skin Skin Exam: Warm, Dry, Intact and Normal Color COURSE Consultation Consultation Comments: Accepted by Dr Lechuga at 1830PM ROR Labs Reviewed Laboratory Results Reviewed?: Yes 11/26/24 16:41 11/26/24 16:41 Laboratory: WBC 6.1 X10^3/uL (3.6-10.0) 11/26/24 16:41 RBC 3.91 X10^6/uL (3.5-5.4) 11/26/24 16:41 Hgb 12.7 g/dL (12.0-16.0) 11/26/24 16:41 Hct 38.1 % (36.0-47.0) 11/26/24 16:41 MCV 97.4 fL (80.0-100.0) 11/26/24 16:41 MCH 32.6 pg (27.0-34.0) 11/26/24 16:41 MCHC 33.4 g/dL (33.0-35.0) 11/26/24 16:41 RDW 14.0 % (11.6-16.5) 11/26/24 16:41 Plt Count 126 X10^3/uL (150.0-450.0) L 11/26/24 16:41 MPV 7.3 fL (7.4-11.0) L 11/26/24 16:41 Neut % (Auto) 66.5 % (42.0-75.0) 11/26/24 16:41 Lymph % (Auto) 17.2 % (21.0-51.0) L 11/26/24 16:41 [place] % (Auto) 9.3 % (0.0-13.0) 11/26/24 16:41 Eos % (Auto) 6.3 % (0.9-2.9) H 11/26/24 16:41 Baso % (Auto) 0.7 % (0.2-1.0) 11/26/24 16:41 Neut # (Auto) 4.1 x10^3/uL (2.2-4.8) 11/26/24 16:41 Lymph # (Auto) 1.1 X10^3/uL (1.3-2.9) L 11/26/24 16:41 [place] # (Auto) 0.6 x10^3/uL (0.3-0.8) 11/26/24 16:41 Eos # (Auto) 0.4 x10^3/uL (0.0-0.2) H 11/26/24 16:41 Baso # (Auto) 0.0 X10^3/uL (0.0-0.1) 11/26/24 16:41 Absolute Nucleated RBC 0.0 /100WBC 11/26/24 16:41 Sodium 140 mmol/L (136-145) 11/26/24 16:41 Corrected Sodium 140 mmol/L (136-145) 11/26/24 16:41 Potassium 4.3 mmol/L (3.5-5.1) 11/26/24 16:41 Chloride 102 mmol/L (98-107) 11/26/24 16:41 Carbon Dioxide 36.0 mmol/L (21-32) H 11/26/24 16:41 BUN 16 mg/dL (7-18) 11/26/24 16:41 Creatinine 1.06 mg/dL (0.55-1.02) H 11/26/24 16:41 Est GFR (MDRD) Af Amer > 60 (>60) 11/26/24 16:41 Est GFR (MDRD) Non-Af 53 (>60) L 11/26/24 16:41 Glucose 113 mg/dL (65-99) H 11/26/24 16:41 Calcium 9.0 mg/dL (8.5-10.1) 11/26/24 16:41 Corrected Calcium TNP 11/26/24 16:41 Magnesium 1.7 mg/dL (2.0-2.9) L 11/26/24 16:41 Total Bilirubin 0.40 mg/dL (0.2-1.0) 11/26/24 16:41 AST 21 Units/L (15-37) 11/26/24 16:41 ALT 14 Units/L (12-78) 11/26/24 16:41 Alkaline Phosphatase 71 Units/L (46-116) 11/26/24 16:41 Troponin I High Sens 8.7 ng/L (4.0-60.0) 11/26/24 16:41 B-Natriuretic Peptide 59.8 pg/mL (0-79) 11/26/24 16:41 Total Protein 7.1 g/dL (6.4-8.2) 11/26/24 16:41 Albumin 3.6 g/dL (3.4-5.0) 11/26/24 16:41 Globulin 3.5 g/dL (2.5-4.5) 11/26/24 16:41 Albumin/Globulin Ratio 1.0 Ratio (1.1-2.1) L 11/26/24 16:41 SARS-CoV-2 (PCR) Negative (NEGATIVE) 11/26/24 16:22 Influenza Type A (PCR) Negative (NEGATIVE) 11/26/24 16:22 Influenza Type B (PCR) Negative (NEGATIVE) 11/26/24 16:22 RSV (PCR) Negative (NEGATIVE) 11/26/24 16:22 Opioid Opioid Risk Tool Age (Salty box if 16-45): No History of Preadolescent Sexual Abuse: No Total: 0 Total Score Risk Category: Low Risk Copyright: Enrico SUBRAMANIAN predicting aberrant behaviors Discharge Plan Diagnosis Discharge Problem: COPD exacerbation Discharge Plan Patient Disposition: 09 ADMITTED INPATIENT Condition: Stable Prescriptions: No Action Rhinocort 32 mcg/actuation Aerosol 64 mcg INTRANASAL DAILY fexofenadine [Jacki] 180 mg Tablet 90 mg PO DAILY doxepin 10 mg Capsule 10 mg PO HS levothyroxine [Synthroid] 125 mcg Tablet 125 mcg PO DAILY folic acid 1 mg Tablet 1 mg PO DAILY telmisartan [Micardis] 20 mg Tablet 20 mg PO DAILY polyethylene glycol 3350 [Miralax] 17 gram/dose Powder 17 g PO DAILY escitalopram oxalate [Lexapro] 20 mg Tablet 20 mg PO DAILY Ferrocite Plus 106 mg iron- 1 mg Capsule 1 cap PO DAILY Prolia 60 mg/mL Syringe 60 mg SUBCUT Q6M Linzess 145 mcg Capsule 145 mcg PO DAILY hydrocodone-acetaminophen 10-325 mg Tablet 1 tab PO Q8H PRN carbidopa-levodopa [Sinemet] 25-100 mg Tablet 1 tab PO TID bupropion HCl [Wellbutrin XL] 150 mg Tablet Extended Release 24 Hr 150 mg PO DAILY atorvastatin 20 mg tablet 20 mg PO QPM ipratropium-albuterol 0.5 mg-3 mg(2.5 mg base)/3 mL solution for nebulization 3 ml INHALATION QID citalopram 40 mg tablet 40 mg PO QDAY tizanidine 4 mg tablet 2 - 4 mg PO QPM PRN esomeprazole magnesium 40 mg capsule,delayed release(DR/EC) 80 mg PO QDAY docusate sodium 100 mg capsule 200 mg PO HS gabapentin 100 mg capsule 200 mg PO QID oxybutynin chloride 5 mg tablet 5 mg PO QDAY budesonide-formoterol [Symbicort] 160-4.5 mcg/actuation HFA aerosol inhaler 2 puff INHALATION BID diclofenac sodium 1 % gel 2 g TOPICAL QID PRN cholecalciferol (vitamin D3) [Vitamin D3] 125 mcg (5,000 unit) tablet 250 mcg PO QDAY memantine-donepezil [Namzaric] 28-10 mg capsule,sprinkle,ER 24hr 1 cap PO QDAY Health Concerns: Post Hospitalization: new medications and changes needed to prevent readmission or further decline. Pt educated and given instructions on all concerns. Plan of Treatment: Continue with present treatment and follow up plan. Pt is to keep follow up appointment as instructed and take medications as ordered. Orders to Discharge Patient Discharge Orders: Transfer (Routine); Ordered 11/26/24 Ordered By: Jesus Alberto Arguello Follow ups/Referrals Follow ups/Referrals: [facility] ACE [Primary Care Provider] - 3 days Instructions Stand Alone Forms: Find Help Web Site, Post Hospital Follow Up Care
[2024-11-26] MEDS: PULMICORT NEB TX 0.5 MG NEB SCH (20:14)
[2024-11-26] MEDS: DUONEB 0.5 MG/3 MG (3 mL) NEB SCH (20:14)
[2024-11-26] MEDS ORDERED: DUONEB 0.5 MG/3 MG (3 mL) NEB SCH (21:00)
[2024-11-26] MEDS ORDERED: TYLENOL 325 MG TAB PO PRN (22:38)
--- NOTE | 2024-11-26 22:55 | EKG ---
Test Reason : Dyspnea Blood Pressure : */* mmHG Vent. Rate : 80 BPM Atrial Rate : 80 BPM P-R Int : 148 ms QRS Dur : 86 ms QT Int : 390 ms P-R-T Axes : 75 72 83 degrees QTc Int : 449 ms Sinus rhythm with frequent premature ventricular complexes Otherwise normal ECG When compared with ECG of 26-NOV-2024 16:32, (Unconfirmed) premature ventricular complexes are now present Confirmed by Carlos Valverde MD ([id number]) on 11/27/2024 5:43:03 AM Referred By: Confirmed By: Carlos Valverde MD
[2024-11-26] MEDS: MILK OF MAGNESIA PO PRN (22:59)
[2024-11-26] MEDS: NS 1,000 ML IV 1,000 ML IV SCH (23:00)
[2024-11-26] MEDS: TYLENOL 325 MG TAB PO PRN (23:01)
[2024-11-27] MEDS: VISTARIL PO ONE (00:45)
--- NOTE | 2024-11-27 04:38 | EKG ---
Test Reason : Dyspnea Blood Pressure : */* mmHG Vent. Rate : 76 BPM Atrial Rate : 76 BPM P-R Int : 162 ms QRS Dur : 98 ms QT Int : 414 ms P-R-T Axes : 65 63 76 degrees QTc Int : 465 ms Normal sinus rhythm with sinus arrhythmia Normal ECG When compared with ECG of 26-NOV-2024 22:34, (Unconfirmed) premature ventricular complexes are no longer present ST no longer depressed in Anterior leads Confirmed by Carlos Valverde MD ([id number]) on 11/27/2024 5:42:44 AM Referred By: Confirmed By: Carlos Valverde MD
[2024-11-27 05:01] LABS: BASOPHILS % (AUTO) 0.4 % (0.2-1.0); EOSINOPHILS % (AUTO) 0.2 % (0.9-2.9); HEMATOCRIT 35.6 % (36.0-47.0); HEMOGLOBIN 11.9 g/dL (12.0-16.0); LYMPHOCYTES # (AUTO) 0.4 X10^3/uL (1.3-2.9); LYMPHOCYTES % (AUTO) 11.4 % (21.0-51.0); MEAN CORPUSCULAR HGB CONC 33.3 g/dL (33.0-35.0); MEAN CORPUSCULAR VOLUME 95.9 fL (80.0-100.0); MEAN PLATELET VOLUME 7.4 fL (7.4-11.0); MONOCYTES # (AUTO) 0.2 x10^3/uL (0.3-0.8); MONOCYTES % (AUTO) 4.5 % (0.0-13.0); NEUTROPHILS # (AUTO) 3.2 x10^3/uL (2.2-4.8); NEUTROPHILS % (AUTO) 83.5 % (42.0-75.0); PLATELET COUNT 118 X10^3/uL (150.0-450.0); RED BLOOD COUNT 3.71 X10^6/uL (3.5-5.4); RED CELL DISTRIBUTION WIDTH 13.9 % (11.6-16.5); WHITE BLOOD COUNT 3.8 X10^3/uL (3.6-10.0)
[2024-11-27 05:04] LABS: INR 1.02 (0.8-1.3)
[2024-11-27 05:13] LABS: ALANINE AMINOTRANSFERASE 23 Units/L (12-78); ALBUMIN 3.2 g/dL (3.4-5.0); ALKALINE PHOSPHATASE 61 Units/L (46-116); ASPARTATE AMINO TRANSFERASE 19 Units/L (15-37); BLOOD UREA NITROGEN 16 mg/dL (7-18); CALCIUM 9.2 mg/dL (8.5-10.1); CARBON DIOXIDE 36.9 mmol/L (21-32); CHLORIDE 103 mmol/L (98-107); COR CA(FOR HYPOALB) 9.8 mg/dL (8.5-10.1); COR NA(FOR HYPERGLY) 141 mmol/L (136-145); CREATININE 0.88 mg/dL (0.55-1.02); GLUCOSE 115 mg/dL (65-99); MAGNESIUM 1.9 mg/dL (2.0-2.9); POTASSIUM 4.6 mmol/L (3.5-5.1); SODIUM 141 mmol/L (136-145); TOTAL PROTEIN 6.6 g/dL (6.4-8.2); eGFR NON BLACK RACES > 60 (>60)
--- NOTE | 2024-11-27 06:09 | RAD ---
EXAM: Portable chest HISTORY: Dyspnea COMPARISON: 11/26/2024 chest x-ray, 06/27/2024 CT chest FINDINGS: Heart is enlarged. No congestive heart failure is noted. Redemonstrated is a massive hiatal herni a containing stomach, large bowel and small bowel and unchanged in appearance from the prior examinat ion. Lungs are markedly hypoinflated but free of acute infiltrates. No definite pleural effusion id entified. Bony thorax is unremarkable. IMPRESSION: Lungs are markedly hypoinflated but free of acute infiltrates Cardiomegaly without congestive heart failure Massive hiatal hernia involving both eber thoraces and containing stomach large and small bowel, unch anged THIS IS AN ELECTRONICALLY VERIFIED FINAL REPORT 11/27/2024 6:06 AM - Electronically signed by Neftaly Gamez MD
[2024-11-27] MEDS ORDERED: CONSULT PHARMACY - POTASSIUM & MAGNESIUM XX SCH (07:00)
[2024-11-27] MEDS: MAG-OX TAB PO SCH (09:15)
[2024-11-27] MEDS: LOVENOX INJ 40 MG SYR SC SCH (09:15)
[2024-11-27] MEDS ORDERED: VOLTAREN 1 % GEL MULTI DOSE TUBE TOP PRN (10:10)
--- NOTE | 2024-11-27 10:23 | EKG ---
Test Reason : Dyspnea Blood Pressure : */* mmHG Vent. Rate : 80 BPM Atrial Rate : 80 BPM P-R Int : 144 ms QRS Dur : 90 ms QT Int : 364 ms P-R-T Axes : 69 69 66 degrees QTc Int : 419 ms Normal sinus rhythm with sinus arrhythmia Nonspecific T wave abnormality Abnormal ECG When compared with ECG of 27-NOV-2024 04:16, Non-specific change in ST segment in Anterior leads Nonspecific T wave abnormality now evident in Anterior leads Referred By: Confirmed By:
[2024-11-27] MEDS: DUONEB 0.5 MG/3 MG (3 mL) NEB SCH (10:44)
[2024-11-27] MEDS ORDERED: PROLIA IM SCH (11:00)
[2024-11-27] MEDS ORDERED: ALLEGRA ONE (11:12)
[2024-11-27] MEDS ORDERED: LEXAPRO ONE (11:12)
[2024-11-27] MEDS: MICARDIS PO SCH (11:28)
[2024-11-27] MEDS: SYNTHROID 125 mcg TAB PO SCH (11:29)
[2024-11-27] MEDS: WELLBUTRIN XL 150 MG (DAILY) PO SCH (11:29)
[2024-11-27] MEDS: SINEMET (PLAIN) 25/100 MG PO SCH (11:29)
[2024-11-27] MEDS: VITAMIN D3 125 mcg (5,000 UNITS) PO SCH (11:29)
[2024-11-27] MEDS: LEXAPRO PO SCH (11:29)
[2024-11-27] MEDS: LEVAQUIN TAB 500 MG PO SCH (11:30)
[2024-11-27] MEDS: FOLIC ACID TAB 1 MG PO SCH (11:30)
[2024-11-27] MEDS: ALLEGRA PO SCH (11:30)
[2024-11-27] MEDS: LINZESS PO SCH (11:30)
[2024-11-27] MEDS: NEURONTIN CAP 100 MG PO SCH (11:30)
[2024-11-27] MEDS: NexIUM PO SCH (11:30)
[2024-11-27] MEDS: PREDNISONE TAB 10 MG PO SCH (11:30)
[2024-11-27] MEDS: MIRALAX POWDER (255 GRAMS BTL) PO SCH (11:34)
[2024-11-27] MEDS: [UNRECOGNIZED DRUG - OTHER] PO SCH (11:37)
[2024-11-27] MEDS: MEMANTINE DONEPEZIL PO SCH (11:37)
[2024-11-27] MEDS: BUDESONIDE ENOSTRIL SCH (12:42)
[2024-11-27] MEDS: NORCO 10/325 TAB PO PRN (17:18)
[2024-11-27] MEDS: BUTT CREAM (COMPOUND) TOP PRN (17:18)
[2024-11-27] MEDS: SINEquan PO SCH (21:16)
[2024-11-27] MEDS: COLACE CAP 100 MG PO SCH (21:26)
[2024-11-27] MEDS: DUONEB 0.5 MG/3 MG (3 mL) NEB ONE (21:38)
[2024-11-27] MEDS: BUDESONIDE SCH (21:39)
[2024-11-27] MEDS: PHARMACY CONSULT LTC MEDICATIONS XX SCH (21:39)
[2024-11-27 23:31] LABS: BILIRUBIN,URINE NEGATIVE (NEGATIVE); BLOOD/HEMOGLOBIN,URINE 1+ (NEGATIVE); GLUCOSE, URINE NEGATIVE (NEGATIVE); KETONES,URINE NEGATIVE (NEGATIVE); LEUKOCYTE ESTERASE ,URINE 1+ (NEGATIVE); NITRITES,URINE NEGATIVE (NEGATIVE); PH,URINE 6.5 (5.0 - 8.0); PROTEIN,URINE 1+ (NEGATIVE); UROBILINOGEN,URINE NORMAL (NORMAL)
[2024-11-27 23:41] LABS: APPEARANCE,URINE CLEAR (CLEAR); COLOR,URINE YELLOW (YELLOW)
[2024-11-27 23:42] LABS: BACTERIA,URINE TRACE /HPF (NEGATIVE); SQUAMOUS EPITHELIAL CELL,UR RARE /HPF (NEGATIVE); YEAST,URINE FEW /HPF (NEGATIVE)
[2024-11-28 06:01] LABS: BASOPHILS # (AUTO) 0.1 X10^3/uL (0.0-0.1); BASOPHILS % (AUTO) 0.9 % (0.2-1.0); EOSINOPHILS # (AUTO) 0.2 x10^3/uL (0.0-0.2); EOSINOPHILS % (AUTO) 2.8 % (0.9-2.9); HEMATOCRIT 35.1 % (36.0-47.0); HEMOGLOBIN 11.7 g/dL (12.0-16.0); LYMPHOCYTES # (AUTO) 1.3 X10^3/uL (1.3-2.9); LYMPHOCYTES % (AUTO) 22.4 % (21.0-51.0); MEAN CORPUSCULAR HEMOGLOBIN 32.3 pg (27.0-34.0); MEAN CORPUSCULAR HGB CONC 33.4 g/dL (33.0-35.0); MEAN CORPUSCULAR VOLUME 96.8 fL (80.0-100.0); MEAN PLATELET VOLUME 7.6 fL (7.4-11.0); MONOCYTES # (AUTO) 0.6 x10^3/uL (0.3-0.8); MONOCYTES % (AUTO) 10.6 % (0.0-13.0); NEUTROPHILS # (AUTO) 3.7 x10^3/uL (2.2-4.8); NEUTROPHILS % (AUTO) 63.3 % (42.0-75.0); PLATELET COUNT 123 X10^3/uL (150.0-450.0); RED BLOOD COUNT 3.62 X10^6/uL (3.5-5.4); RED CELL DISTRIBUTION WIDTH 13.9 % (11.6-16.5); WHITE BLOOD COUNT 5.9 X10^3/uL (3.6-10.0)
[2024-11-28 06:31] LABS: ALANINE AMINOTRANSFERASE 9 Units/L (12-78); ALBUMIN 3.2 g/dL (3.4-5.0); ALKALINE PHOSPHATASE 56 Units/L (46-116); ASPARTATE AMINO TRANSFERASE 28 Units/L (15-37); BLOOD UREA NITROGEN 14 mg/dL (7-18); CALCIUM 8.6 mg/dL (8.5-10.1); CHLORIDE 106 mmol/L (98-107); COR CA(FOR HYPOALB) 9.2 mg/dL (8.5-10.1); CREATININE 0.86 mg/dL (0.55-1.02); GLUCOSE 67 mg/dL (65-99); MAGNESIUM 2.1 mg/dL (2.0-2.9); POTASSIUM 4.2 mmol/L (3.5-5.1); SODIUM 141 mmol/L (136-145); TOTAL PROTEIN 6.6 g/dL (6.4-8.2); eGFR NON BLACK RACES > 60 (>60)
[2024-11-28] MEDS: CATAPRES TAB 0.1 MG PO STA (09:54)
[2024-11-28] MEDS: DALIRESP PO SCH (09:54)
[2024-11-28] MEDS: DECADRON INJ IVP ONE (09:54)
[2024-11-28] MEDS: SINGULAIR TAB 10 MG PO SCH (23:50)
[2024-11-29 08:12] VITALS: RESP 18
[2024-11-29 08:18] LABS: BASOPHILS % (AUTO) 0.4 % (0.2-1.0); EOSINOPHILS # (AUTO) 0.1 x10^3/uL (0.0-0.2); HEMATOCRIT 33.5 % (36.0-47.0); HEMOGLOBIN 11.2 g/dL (12.0-16.0); LYMPHOCYTES # (AUTO) 1.1 X10^3/uL (1.3-2.9); LYMPHOCYTES % (AUTO) 20.1 % (21.0-51.0); MEAN CORPUSCULAR HEMOGLOBIN 32.7 pg (27.0-34.0); MEAN CORPUSCULAR HGB CONC 33.4 g/dL (33.0-35.0); MEAN CORPUSCULAR VOLUME 97.8 fL (80.0-100.0); MEAN PLATELET VOLUME 7.4 fL (7.4-11.0); MONOCYTES # (AUTO) 0.5 x10^3/uL (0.3-0.8); MONOCYTES % (AUTO) 9.2 % (0.0-13.0); NEUTROPHILS # (AUTO) 3.9 x10^3/uL (2.2-4.8); NEUTROPHILS % (AUTO) 69.3 % (42.0-75.0); PLATELET COUNT 104 X10^3/uL (150.0-450.0); RED BLOOD COUNT 3.42 X10^6/uL (3.5-5.4); RED CELL DISTRIBUTION WIDTH 14.2 % (11.6-16.5); WHITE BLOOD COUNT 5.7 X10^3/uL (3.6-10.0)
[2024-11-29 08:40] LABS: ALANINE AMINOTRANSFERASE 9 Units/L (12-78); ALKALINE PHOSPHATASE 51 Units/L (46-116); ASPARTATE AMINO TRANSFERASE 19 Units/L (15-37); BLOOD UREA NITROGEN 10 mg/dL (7-18); CALCIUM 7.8 mg/dL (8.5-10.1); CARBON DIOXIDE 32.4 mmol/L (21-32); CHLORIDE 106 mmol/L (98-107); COR CA(FOR HYPOALB) 8.6 mg/dL (8.5-10.1); CREATININE 0.94 mg/dL (0.55-1.02); GLUCOSE 71 mg/dL (65-99); SODIUM 142 mmol/L (136-145); TOTAL PROTEIN 6.2 g/dL (6.4-8.2); eGFR NON BLACK RACES > 60 (>60)
[2024-11-29 10:01] VITALS: O2SAT 98
[2024-11-29] MEDS ORDERED: MILK OF MAGNESIA PO PRN (10:20)
[2024-11-29] MEDS ORDERED: TYLENOL 325 MG TAB PO PRN (10:20)
[2024-11-29] MEDS ORDERED: VOLTAREN 1 % GEL MULTI DOSE TUBE TOP PRN (10:21)
[2024-11-29] MEDS: NORCO 10/325 TAB PO PRN (11:51)
[2024-11-29] MEDS: NS 1,000 ML IV 1,000 ML IV SCH (11:53)
[2024-11-29] MEDS: DUONEB 0.5 MG/3 MG (3 mL) NEB SCH (12:26)
[2024-11-29] MEDS: NEURONTIN CAP 100 MG PO SCH (13:38)
[2024-11-29] MEDS: SINEMET (PLAIN) 25/100 MG PO SCH (13:38)
[2024-11-29 14:37] VITALS: BP 140/71; PULSE 72; TEMP 98.1
[2024-11-29] MEDS ORDERED: PULMICORT NEB TX 0.5 MG NEB SCH (21:00)
[2024-11-29] MEDS ORDERED: COLACE CAP 100 MG PO SCH (21:00)
[2024-11-29] MEDS ORDERED: SINEquan PO SCH (21:00)
[2024-11-30] MEDS ORDERED: ALLEGRA PO SCH (09:00)
[2024-11-30] MEDS ORDERED: FOLIC ACID TAB 1 MG PO SCH (09:00)
[2024-11-30] MEDS ORDERED: MIRALAX POWDER (255 GRAMS BTL) PO SCH (09:00)
[2024-11-30] MEDS ORDERED: LEVAQUIN TAB 500 MG PO SCH (09:00)
[2024-11-30] MEDS ORDERED: PREDNISONE TAB 10 MG PO SCH (09:00)
[2024-11-30] MEDS ORDERED: NexIUM PO SCH (09:00)
[2024-11-30] MEDS ORDERED: LINZESS PO SCH (09:00)
[2024-11-30] MEDS ORDERED: MICARDIS PO SCH (09:00)
[2024-11-30] MEDS ORDERED: LOVENOX INJ 40 MG SYR SC SCH (09:00)
[2024-11-30] MEDS ORDERED: WELLBUTRIN XL 150 MG (DAILY) PO SCH (09:00)
[2024-11-30] MEDS ORDERED: VITAMIN D3 125 mcg (5,000 UNITS) PO SCH (09:00)
[2024-11-30] MEDS ORDERED: LEXAPRO PO SCH (09:00)
[2024-11-30] MEDS ORDERED: SYNTHROID 125 mcg TAB PO SCH (09:00)
== END 2024-11-29 15:30 | disposition home or self-care (01) ==
LOC: EDACCT# → ER 16:16 → INTOOBSV 18:37 → MED/SURG 18:37
PROVIDERS: ADMIT Internal Medicine; ATTEND Obstetrics & Gynecology Obstetrics
DX: R82.998 Other abnormal findings in urine; E78.5 Hyperlipidemia, unspecified; F41.8 Other specified anxiety disorders; Z03.818 Encounter for observation for suspected exposure to other biological agents ruled out; E83.42 Hypomagnesemia; R94.31 Abnormal electrocardiogram [ECG] [EKG]; Z99.81 Dependence on supplemental oxygen; E03.8 Other specified hypothyroidism; K44.9 Diaphragmatic hernia without obstruction or gangrene; J44.1 Chronic obstructive pulmonary disease with (acute) exacerbation; I10 Essential (primary) hypertension; R06.02 Shortness of breath; R26.89 Other abnormalities of gait and mobility; R53.1 Weakness; K21.9 Gastro-esophageal reflux disease without esophagitis